=== PATIENT | female | born 1960 | race Caucasian/White ===

== ENCOUNTER 2018-09-22 22:42 | Emergency (ER) | payer OTHER, SELFPAY ==
[2018-09-22 22:45] VITALS: BP 134/86; PULSE 102; RESP 17; TEMP 36.8; O2SAT 100; BMI 38.0
--- NOTE | 2018-09-22 23:14 | ED.HA ---
HPI - Headache General Chief Complaint: Headache Stated Complaint: throbbing headache since the 4th Time Seen by Provider: 09/22/18 23:01 Source: patient Mode of arrival: ambulatory Limitations: no limitations History of Present Illness HPI Narrative: 58-year-old female here for evaluation of a bilateral frontal headache. Patient states that has been going on for the past 3 days. She has been alternating Tylenol and Motrin. States she has not had a headache like this in the past. It was a gradual onset. No fevers. Does have some occasional neck pain. She states the headache is causing her right hip to hurt. Given to the emergency department for evaluation Related Data Allergies Allergy/AdvReac Type Severity Reaction Status Date / Time No Known Drug Allergies Allergy Verified 09/22/18 23:29 Review of Systems Constitutional Denies fever(s), Reports headache(s) and Denies weakness Eyes Denies blurry vision, Denies change in vision and Denies loss of vision ENT Ears, Nose, Mouth, and Throat: Denies vertigo, Denies dizziness, Reports headache(s) and Denies disequilibrium Cardiovascular Denies chest pain and Denies dyspnea Respiratory Denies dyspnea Gastrointestinal Gastrointestinal: Denies abdominal pain, Denies nausea and Denies vomiting Musculoskeletal Denies abnormal gait and Reports arthralgias (Right hip pain) Integumentary/Breasts Denies new lesions and Denies rash Neurologic Denies abnormal gait, Denies behavioral changes, Denies confusion, Denies vertigo, Denies dizziness, Reports headache(s), Denies focal weakness, Denies loss of vision, Denies memory loss, Denies disequilibrium and Denies weakness Psychiatric Denies behavioral changes, Denies confusion and Denies memory loss [facility] Medical History Patient denies medical problems (Acute) Social History Smoking Status: Never smoker Social History Smoking Status: Never smoker Exam Initial Vital Signs Initial Vital Signs: Vital Signs Temperature 98.2 F 09/22/18 22:45 Pulse Rate 102 H 09/22/18 22:45 Respiratory Rate 17 09/22/18 22:45 Blood Pressure 134/86 09/22/18 22:45 Pulse Oximetry 100 09/22/18 22:45 Const General: cooperative, well developed, well groomed and No acute distress Orientation: alert, awake and oriented x3 HENMT Head: normal to inspection and normocephalic Ears: hearing grossly normal bilaterally Nose: external nose normal Eyes Pupils: PERRL EOM: EOM intact bilaterally Resp Effort & Inspection: normal respiratory effort Auscultation: clear to auscultation bilaterally Cardio Rate: regular rate Rhythm: regular rhythm Skin Lesions: no lesions Rashes: no rashes Neuro General: alert, awake and oriented x3 Cranial Nerves: CN's II-XI intact bilaterally Cognition: normal cognition Speech: speech normal Gait: normal gait Motor: muscle tone normal throughout Sensory Exam: no sensory deficits noted Extrem General: normal to inspection and capillary refill normal Psych Appearance: grossly normal and well kempt Course Orders Ordered: Discontinued Medications Diphenhydramine HCl (Benadryl) 25 mg IV NOW ONE Stop: 09/22/18 23:15 Last Admin: 09/22/18 23:30 Dose: 25 mg Sodium Chloride (Normal Saline 0.9%) 1,000 mls @ 1,000 mls/hr IV BOLUS ONE Stop: 09/23/18 00:13 Last Infusion: 09/23/18 00:44 Dose: 0 mls/hr Admin: 09/22/18 23:29 Dose: 1,000 mls/hr Ketorolac Tromethamine (Toradol) 30 mg IV NOW ONE Stop: 09/22/18 23:15 Last Admin: 09/22/18 23:30 Dose: 30 mg Metoclopramide HCl (Reglan) 10 mg IV NOW ONE Stop: 09/22/18 23:15 Last Admin: 09/22/18 23:30 Dose: 10 mg Vital Signs - 8 hr 09/22/18 22:45 09/23/18 00:54 Temperature 98.2 F 98.1 F Pulse Rate 102 H 70 Respiratory Rate 17 16 Blood Pressure 134/86 106/50 L Pulse Oximetry 100 98 MDM - Headache MDM Narrative Medical decision making narrative: Patient reports complete resolution of her symptoms after medications in the emergency department. I do suspect that her headache is a tension headache caused by her neck pain. She is afebrile. Low suspicion for meningitis. Symptoms were gradual onset. No fevers. Low suspicion for ICH. Hold on any radiologic studies for now. Patient was given return precautions and follow-up instructions. She was told to contact her primary doctor for follow-up. She expressed understanding and agreement with plan. Discharge Plan Departure Patient Disposition: Home Clinical Impression: Headache Qualifiers: Headache type: unspecified Headache chronicity pattern: unspecified pattern Intractability: not intractable Qualified Code(s): R51 - Headache Discharge Date/Time: 09/23/18 00:53 Interventions: ED Discharge Assessment Last Done: 09/23/18 00:54 Instructions: DI for Headache Activity Restrictions/Additional Instructions: Contact your primary care provider for a follow-up. Return to the emergency department for any new or worsening symptoms. Continue all of your medications as directed.
[2018-09-22] MEDS: SODIUM CHLORIDE 0.9% 1,000 ML 1000 ML IV (23:29)
[2018-09-22] MEDS: diphenhydrAMINE 50 MG/ML VIAL 25 MG IV (23:30)
[2018-09-22] MEDS: METOCLOPRAMIDE 10 MG/2 ML INJ IV (23:30)
[2018-09-22] MEDS: KETOROLAC 60 MG/2 ML VIAL 30 MG IV (23:30)
[2018-09-23 00:54] VITALS: BP 106/50; PULSE 70; RESP 16; TEMP 36.7; O2SAT 98
== END 2018-09-23 00:53 | disposition home or self-care (01) ==
PROVIDERS: Emergency Provider Emergency Medicine
DX: R51 Headache (principal)
CPT/HCPCS: 36591; 96361; 96374; 96375; 99283; 99284; J1200; J1885; J2765

== ENCOUNTER 2019-05-04 14:47 | Emergency (ER) | payer OTHER, SELFPAY ==
[2019-05-04 14:55] VITALS: BP 135/68; PULSE 98; RESP 14; TEMP 36.7; O2SAT 98; BMI 37.0
--- NOTE | 2019-05-04 14:56 | DI.RAD.S_ITS ---
PROCEDURE: XR FINGER LT MIN 2V INDICATIONS: Cat scratch or bite, red swollen TECHNIQUE: AP hand, 2 views of the 3 finger(s) acquired. COMPARISON: None. FINDINGS: Bones: No fractures or dislocations. No suspicious bony lesions. Soft tissues: No suspicious soft tissue calcifications. IMPRESSION: No fracture. No osseous lesion. If symptoms and/or clinical suspicion for pathology persists, further assessment with repeat radiographs (7-10 days) or advanced imaging (e.g. CT, MRI or bone scan) may be helpful. Dictated by: Alix Castañeda MD, PhD on 05/04/2019 at 15:41 Approved by: Alix Castañeda MD, PhD on 05/04/2019 at 15:42
--- NOTE | 2019-05-04 18:19 | ED.WOUNDLAC ---
HPI - Wound/Laceration <KIT FarleyP - Last Filed: 05/04/19 22:33> General Chief Complaint: Wound/Laceration Stated Complaint: Patient states left middle finger infection Time Seen by Provider: 05/04/19 18:02 Source: patient Mode of arrival: Ambulatory Limitations: no limitations History of Present Illness HPI narrative: This is a 58-year-old female, nonsmoker, who presents to ED with left 3rd distal finger infection. Patient reports she got attacked by her own old cat on at a [employer] office either by her back claws or tooth when she was holding her cat on her lap and reached out for her purse. Patient self treated with soaking in a peroxide and alcohol daily with antibiotic triple ointment but her affected finger has been getting worse with pain, swelling, redness, warmth on affected finger and mild chills since yesterday. Patient right dominant hand. Unsure of last tetanus immunization. Patient reports mild to moderate throbbing constant pain with mildly decreased sensation on affected finger. Patient has history of diabetes, hypertension, hypothyroidism. Related Data Previous Rx's Medication Instructions Recorded amoxicillin-pot clavulanate 1 tab PO BID 7 Days #14 tab 05/04/19 [Augmentin] Allergies Allergy/AdvReac Type Severity Reaction Status Date / Time No Known Drug Allergies Allergy Verified 09/22/18 23:29 Review of Systems <KIT FarleyP - Last Filed: 05/04/19 22:33> Review of Systems Narrative: General: Denies fever, (+) chills, fatigue, malaise, sweats. HEENT: Denies sinus pain, ear pain, sore throat, difficulty swallowing, dizziness. Respiratory: Denies dyspnea, cough, wheezing, hemoptysis, sputum. Cardiovascular: Denies chest pain, palpitations, orthopnea, edema. Gastrointestinal: Denies nausea, vomiting, abdominal pain, diarrhea, constipation, melena. : Denies dysuria, frequency, incontinence, hematuria, urinary retention. Musculoskeletal: See HPI Skin: See HPI Neurologic: Denies weakness, headache, numbness, change in speech, confusion, seizures, incoordination. Psychiatric: No concerning psychosocial issues. 12-point review of systems is negative except for those stated above. Patient History <DAVID Farley - Last Filed: 05/04/19 22:33> Social History Smoking Status: Never smoker Smoking Status: Never smoker alcohol intake frequency: other Substance Use Type: does not use Exam <Guilherme UrbinaDAVID - Last Filed: 05/04/19 22:33> Narrative Exam Narrative: General appearance: well developed, well nourished, in no acute distress. Head: normocephalic, atraumatic, no scalp lesions, non-tender. ENT: Hearing grossly intact. Nose without bleeding, purulent discharge or deviation. Mucous membrane moist, no mucosal lesion. Throat without erythema, tonsillar hypertrophy or exudate. Uvula in midline, airway patent. Neck/Thyroid: neck supple, full range of motion, no visible masses or meningeal signs. No JVD, non-tender without lymphadenopathy. Skin: Mild swelling, erythema to 3rd left distal finger. Warm to palpate on 3rd finger and the rest of the hand. No suspicious rashes, lesions over other visible areas. Heart: no clubbing, no cyanosis, no edema. Lungs: Breathing even and unlabored. No stridor. No accessory muscles used. Able to speak in full sentences. Chest: normal shape and expansion. Abdomen: non-obese, non-distended. Neurologic: alert and oriented. Cognitive exam, [employer] and PNS grossly intact on informal exam. Psych: good eye contact, normal affect. Initial Vital Signs Initial Vital Signs: Vital Signs Temperature 98.1 F 05/04/19 14:55 Pulse Rate 98 H 05/04/19 14:55 Respiratory Rate 14 05/04/19 14:55 Blood Pressure 135/68 05/04/19 14:55 Pulse Oximetry 98 05/04/19 14:55 Extrem Left upper extremity: hand Details: abnormal to inspection, normal capillary refill, neuromotor exam normal Details: wrist extension normal, thumb opposition normal and thumb IP flexion normal, neurosensory exam normal, tenderness Location: of the 3rd digit Location: at the distal phalanx, vascular exam Details: radial pulse present, normal ROM of fingers, warmth Location: of the 3rd digit Location: at the distal phalanx, swelling Location: of the 3rd digit Location: at the distal phalanx and other (lesion near medial aspect nail) <Dmitry Park DO - Last Filed: 05/05/19 05:37> Initial Vital Signs Initial Vital Signs: Vital Signs Temperature 98.1 F 05/04/19 14:55 Pulse Rate 98 H 05/04/19 14:55 Respiratory Rate 14 05/04/19 14:55 Blood Pressure 135/68 05/04/19 14:55 Pulse Oximetry 98 05/04/19 14:55 Scores <[facility] Wayne[facility]rickKIT penaP - Last Filed: 05/04/19 22:33> GCS [place] coma scale eye opening: Spontaneous [place] coma scale verbal response: Orientated [place] coma scale motor response: Obey commands [place] coma scale total score: 15 Course <[facility] WayneKIT HackettP - Last Filed: 05/04/19 22:33> Orders Ordered: Discontinued Medications Amoxicillin/Clavulanate Potassium (Augmentin 875-125 Mg) 1 tab PO NOW ONE Stop: 05/04/19 18:22 Last Admin: 05/04/19 18:46 Dose: 1 tab Documented by: SCANAPO Diphtheria/Tetanus/Acell Pertussis (Adacel) 0.5 ml IM .ONCE ONE Stop: 05/04/19 18:22 Last Admin: 05/04/19 18:46 Dose: 0.5 ml Documented by: SCANAPO Vital Signs Vital signs: Vital Signs - 8 hr 05/04/19 14:55 05/04/19 18:44 Temperature 98.1 F Pulse Rate 98 H 85 Respiratory Rate 14 20 Blood Pressure 135/68 Blood Pressure [Left Arm] 137/65 Pulse Oximetry 98 98 <Dmitry Park DO - Last Filed: 05/05/19 05:37> Orders Ordered: Discontinued Medications Amoxicillin/Clavulanate Potassium (Augmentin 875-125 Mg) 1 tab PO NOW ONE Stop: 05/04/19 18:22 Last Admin: 05/04/19 18:46 Dose: 1 tab Documented by: SCANAPO Diphtheria/Tetanus/Acell Pertussis (Adacel) 0.5 ml IM .ONCE ONE Stop: 05/04/19 18:22 Last Admin: 05/04/19 18:46 Dose: 0.5 ml Documented by: SCANAPO Vital Signs Vital signs: Vital Signs - 8 hr 05/04/19 14:55 05/04/19 18:44 Temperature 98.1 F Pulse Rate 98 H 85 Respiratory Rate 14 20 Blood Pressure 135/68 Blood Pressure [Left Arm] 137/65 Pulse Oximetry 98 98 MDM - Wound/Laceration <DAVID Farley - Last Filed: 05/04/19 22:33> Differential Diagnosis Differential diagnosis: Likely other (Animal bite) Medical Records Attestation: I reviewed the patient's medical records. Imaging Data XR-Finger LT: Radiologist's Impression: [address] [address] XRay Report Signed Patient: Diane Obregon [facility]#: [id number] : 1Acct:[id number] Age/Sex: 58 / FDate of Service: 05/04/19 Loc: ED Accession Number: [id number] Procedure: XR finger LT min 2V Ordering Provider: Aldo Hinkle MD PROCEDURE: XR FINGER LT MIN 2V INDICATIONS: Cat scratch or bite, red swollen TECHNIQUE: AP hand, 2 views of the 3 finger(s) acquired. COMPARISON: None. FINDINGS: Bones: No fractures or dislocations. No suspicious bony lesions. Soft tissues: No suspicious soft tissue calcifications. IMPRESSION: No fracture. No osseous lesion. If symptoms and/or clinical suspicion for pathology persists, further assessment with repeat radiographs (7-10 days) or advanced imaging (e.g. CT, MRI or bone scan) may be helpful. Dictated by: Alix Castañeda MD, PhD on 05/04/2019 at 15:41 Approved by: Alix Castañeda MD, PhD on 05/04/2019 at 15:42 [facility] Narrative Medical decision making narrative: Physical exam is consistent with cellulitis on left 3rd distal phalange by either cat bite or scratch. Patient has history of diabetes and patient will be covered with Augmentin b.i.d. dose for 7 days. Tdap has been updated today. Patient advised to take [id number] Tylenol and or Motrin as needed for discomfort and fever. Return precautions were discussed with the patient and advised to re-evaluated her affected finger in 2-3 days. Patient verbalized understanding and in agreement with the treatment plan. Discharge Plan Departure Patient Disposition: Home Clinical Impression: Open wound of finger of left hand due to animal bite, Cellulitis of left middle finger Discharge Date/Time: 05/04/19 18:58 Instructions: DI for Cellulitis -- Adult, DI for Animal Bites Activity Restrictions/Additional Instructions: You have been diagnosed with [cellulitis on left 3rd distal finger from animal bite/ scratch. Tetanus immunization has been updated today.]. What to do: *Take your medications as directed. You were medicated with Augmentin 1st dose while in ED and will be discharged to home with remaining dose of 7 day course. This medication has been transmitted to [facility], [place], operated by [facility]. You can take [id number] Tylenol and or Motrin as needed for discomfort or fever. You can continue to do wound care with antibiotic ointment. *Follow up with your primary care provider in 2-3 days, call for an appointment for wound recheck. Let them know you were seen in the ED and that we asked you to be seen in follow up. *Return to ED if you have any new, worsening, or concerning symptoms, such as [high fever, worsening pain, increasing redness/swelling/warmth after starting antibiotic medications for a couple of doses, chest pain, breathing difficulty, unable to tolerate fluids or any acute concerns]. Prescriptions: New amoxicillin-pot clavulanate [Augmentin] 875-125 mg tablet 1 tab PO BID 7 Days Qty: 14 RF: 0 Referrals: [facility], [place] [Outside]
[2019-05-04 18:44] VITALS: BP 137/65; PULSE 85; RESP 20; O2SAT 98
[2019-05-04] MEDS: TET,DIPH,PERTUSS(ACELL),VAC/PF 0.5 ML SYRINGE IM (18:46)
[2019-05-04] MEDS: AMOXICILLIN/CLAV 875/125 MG 1 TAB PO (18:46)
--- NOTE | 2019-05-04 18:57 | PC.NURSE ---
patient was scratched by cat.
== END 2019-05-04 18:58 | disposition home or self-care (01) ==
PROVIDERS: Emergency Provider Nurse Practitioner Family
DX: L03.012 Cellulitis of left finger (principal); S61.259A Open bite of unspecified finger without damage to nail, initial encounter; W55.01XA Bitten by cat, initial encounter; Z23 Encounter for immunization
CPT/HCPCS: 73140; 90471; 99283; 90715

== ENCOUNTER 2020-05-21 09:00 | Outpatient (RCR) | payer OTHER, SELFPAY ==
--- NOTE | 2019-12-23 15:32 | PT.OIE ---
Current Diagnoses Pain in left shoulder (12/23/19) Past Medical History (Last Updated 12/27/19 @ 15:32 by Liza Rodriguez, PT) Diabetes mellitus (Acute) Hypertension (Acute) Hypothyroid (Acute) Patient denies medical problems (Acute) Past Surgical History (Last Updated 12/27/19 @ 15:31 by Liza Rodriguez, PT) S/P rotator cuff repair (Acute) Visit Care Team Role Provider Type Jean Marie Jaimes DO Referring Provider Non-Staff Specialty: [facility] Address: [address] [place] [address], [id number] Email: Attending Provider Specialty: Address: Phone: Fax: Email: Physical Therapy Initial Evaluation PT-OP-A Visit Information Start: 12/23/19 07:56 Freq: Status: Active Protocol: Document 12/23/19 08:15 AMB (Rec: 12/25/19 07:51 AMB [email or web address]) Out-Patient Physical Therapy Visit Information Visit Information Visit Type Initial Evaluation Visit Start Time 08:15 Visit Stop Time 09:00 Total Visit Minutes 45 Visit Number 1 PT-OP-B Current Condition Start: 12/23/19 07:56 Freq: Status: Active Protocol: Document 12/23/19 08:12 AMB (Rec: 12/23/19 08:21 AMB [id number]) Current Condition History of Current Condition Onset Date 4 months ago Current Complaints L shoulder pain History of Current Condition Diane reports insidious onset shoulder pain, unable to lift L arm behind back or above shoulder. Difficulty and pain sleeping. History of R shoulder rotator cuff surgery around 2010. 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 Prior Functional Status Baseline Function- ADL's Independent Baseline Function- Mobility Independent Current Functional Impairments (Reported) Functional Limitations- ADL's Using the arm to carry, reach behind back, lift Personal Factors Other Personal Factors That May Effect DM II, hypothyroid, previous R Therapy/Recovery rotator cuff surgery x2 PT-OP-C Subjective Start: 12/23/19 07:56 Freq: Status: Active Protocol: Document 12/23/19 08:15 AMB (Rec: 12/25/19 07:51 AMB [email or web address]) Patient Questionnaires Quick Dash- Upper Extremity Quick Dash UE Score 55 Quick Dash UE Impairment 40 to 59% Impaired (Score 40- 59) OP-PT Pain Assessment Location Left Shoulder Intensity 9 Scale Used Numeric (0 - 10) PT-OP-K Range of Motion Start: 12/23/19 07:56 Freq: Status: Active Protocol: Document 12/23/19 08:15 AMB (Rec: 12/23/19 08:29 AMB [id number]) Shoulder Goniometric Range of Motion Shoulder Right Active Testing Position Sitting Flexion 165 Abduction 170 External Rotation at 0 degrees Abduction 50 Internal Rotation Behind Back (text) T6 Left Active Testing Position Standing Flexion 100 Extension 52 Abduction 80 External Rotation at 0 degrees Abduction 28 Internal Rotation Behind Back (text) buttocks PT-OP-L Special Tests Start: 12/23/19 07:56 Freq: Status: Active Protocol: Document 12/23/19 08:15 AMB (Rec: 12/25/19 08:14 AMB [email or web address]) Special Tests Shoulder Special Tests Empty Can Test Results - Lift-Off Rotator Cuff Test Results + PT-OP-M Strength Start: 12/23/19 07:56 Freq: Status: Active Protocol: Document 12/23/19 08:15 AMB (Rec: 12/25/19 08:14 AMB [email or web address]) Shoulder Strength Shoulder Manual Muscle Testing Right Flexion 4 Good Extension 4+ Good+ Abduction (C5) 4 Good External Rotation 4 Good Internal Rotation 4+ Good+ Left Flexion 3+ Fair+ Extension 4 Good Abduction (C5) 3- Fair- External Rotation 4- Good- Internal Rotation 4- Good- PT-OP-Q Treatments Start: 12/23/19 07:56 Freq: Status: Active Protocol: Document 12/23/19 08:15 AMB (Rec: 12/25/19 07:51 AMB [email or web address]) Therapeutic Exercises Sitting Exercises 1 Sitting Exercise Name upper trap stretch Reps/Minutes 30x2 Standing Exercises 2 Standing Exercise Name t band rows Equipment Used #2 t band Reps/Minutes 2x12 1 Standing Exercise Name isometrics Side left Reps/Minutes 5x5 Comments abduction Manual Therapy Treatment Taping 1 Body Location L shoulder Type of Tape Kinesio Tape Comments Y around GH joint, I for scap retract PT-OP-T Assessment and Plan Start: 12/23/19 07:56 Freq: Status: Active Protocol: Document 12/23/19 08:15 AMB (Rec: 12/25/19 15:57 [email or web address]) Physical Therapy Assessment Rehab Potential Rehabilitation Potential Good Evaluation Complexity Number of Personal Factors/Comorbidities 1-2 Number of Body Systems Impaired 4 or More Clinical Presentation at Evaluation Evolving Impairments Impairments Functional Activities,Pain,ROM ,Strength Goals Three Impairment Pain Short Term Goal (STG) Diane will perform upper body dressing with shoulder pain of 5/10 or less. 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 LTG Duration 8 weeks Two Impairment Strength Short Term Goal (STG) Diane will improve her shoulder abduction strength to 4/5 or better. STG Duration 4 weeks Alf Goal (LTG) Diane will improve her shoulder strength so that she can lift a plate to an upper cabinet without shoulder compensations. LTG Duration 8 weeks One Impairment ROM Short Term Goal (STG) Diane will improve her shoulder AROM flexion to 140 degrees. STG Duration 4 weeks Senior Mechanical Engineer Goal (LTG) Diane will improve her shoulder AROM internal rotation so that she can clasp her bra behind her back. LTG Duration 8 weeks Assessment Summary Assessment Diane attends physical therapy with insidious onset shoulder pain that is limiting her with many of her activities of daily living. She is concerned because she had rotator cuff surgery in the past. It is difficult for her to rest her shoulder secondary to watching young children. She will benefit from physical therapy to strengthen around the scapula and rotator cuff so that she can sleep and perform her daily activities with less pain. Physical Therapy Plan Frequency and Duration Frequency of Treatment 2x/Week Duration of Treatment 8 weeks Plan of Care Start Date 12/23/19 Plan of Care End Date 02/17/20 Therapeutic Interventions Therapeutic Interventions Home Exercise Program,Joint Mobilizations,Manual Therapy, Neuromuscular Re-education, Self-Care/Home Management, Therapeutic Activities, Therapeutic Exercises Modalities Cold Pack/Ice Massage,Electric Stimulation,Hot Packs, Ultrasound Next Visit Focus/Plan Next Note Type Treatment Note Next Visit Plan Progress HEP with rotator cuff and scapular strengthening, address body mechanics/posture
--- NOTE | 2019-12-23 15:33 | PT.OPPOC ---
Physical, Occupational & Speech Therapy At [facility] Current Diagnoses Pain in left shoulder (12/23/19) Visit Care Team Role Provider Type Jean Marie Jaimes DO Referring Provider Non-Staff Specialty: Family Practice Address: [address] [place] [address], [id number] Email: Attending Provider Specialty: Address: Phone: Fax: Email: Plan Of Care PT-OP-T Assessment and Plan Start: 12/23/19 07:56 Freq: Status: Active Protocol: Document 12/23/19 08:15 AMB (Rec: 12/25/19 15:57 AMB [email or web address]) Physical Therapy Assessment Rehab Potential Rehabilitation Potential Good Evaluation Complexity Number of Personal Factors/Comorbidities 1-2 Number of Body Systems Impaired 4 or More Clinical Presentation at Evaluation Evolving Impairments Impairments Functional Activities,Pain,ROM ,Strength Goals Three Impairment Pain Short Term Goal (STG) Diane will perform upper body dressing with shoulder pain of 5/10 or less. 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 LTG Duration 8 weeks Two Impairment Strength Short Term Goal (STG) Diane will improve her shoulder abduction strength to 4/5 or better. STG Duration 4 weeks Care Partner Goal (LTG) Diane will improve her shoulder strength so that she can lift a plate to an upper cabinet without shoulder compensations. LTG Duration 8 weeks One Impairment ROM Short Term Goal (STG) Diane will improve her shoulder AROM flexion to 140 degrees. STG Duration 4 weeks Senior Care Goal (LTG) Diane will improve her shoulder AROM internal rotation so that she can clasp her bra behind her back. LTG Duration 8 weeks Assessment Summary Assessment Diane attends physical therapy with insidious onset shoulder pain that is limiting her with many of her activities of daily living. She is concerned because she had rotator cuff surgery in the past. It is difficult for her to rest her shoulder secondary to watching young children. She will benefit from physical therapy to strengthen around the scapula and rotator cuff so that she can sleep and perform her daily activities with less pain. Physical Therapy Plan Frequency and Duration Frequency of Treatment 2x/Week Duration of Treatment 8 weeks Plan of Care Start Date 12/23/19 Plan of Care End Date 02/17/20 Therapeutic Interventions Therapeutic Interventions Home Exercise Program,Joint Mobilizations,Manual Therapy, Neuromuscular Re-education, Self-Care/Home Management, Therapeutic Activities, Therapeutic Exercises Modalities Cold Pack/Ice Massage,Electric Stimulation,Hot Packs, Ultrasound Next Visit Focus/Plan Next Note Type Treatment Note Next Visit Plan Progress HEP with rotator cuff and scapular strengthening, address body mechanics/posture Plan of Care Dates Plan of Care Start Date 12/23/19 Plan of Care End Date 02/17/20 Electronically Signed by: Liza Rodriguez, PT 12/27/19 [id number] Please Sign and Return: I have reviewed this Plan of Care and certify that the skilled therapy services above are required to meet the patient?s needs. Physician Signature Date Printed Name and Credentials Clinical Instructor Signature Printed Name and Credentials
--- NOTE | 2019-12-30 08:55 | PT.OTN ---
Current Diagnoses Pain in left shoulder (12/30/19) Physical Therapy Treatment Note PT-OP-A Visit Information Start: 12/23/19 07:56 Freq: Status: Active Protocol: Document 12/30/19 08:15 AMB (Rec: 12/30/19 08:52 AMB [id number]) Out-Patient Physical Therapy Visit Information Visit Information Visit Type Treatment Note Visit Start Time 08:15 Visit Stop Time 09:00 Total Visit Minutes 45 Visit Number 2 PT-OP-B Current Condition Start: 12/23/19 07:56 Freq: Status: Active Protocol: Document 12/23/19 08:12 AMB (Rec: 12/23/19 08:21 AMB [id number]) Current Condition History of Current Condition Onset Date 4 months ago Current Complaints L shoulder pain History of Current Condition Diane reports insidious onset shoulder pain, unable to lift L arm behind back or above shoulder. Difficulty and pain sleeping. History of R shoulder rotator cuff surgery around 2010. 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 Prior Functional Status Baseline Function- ADL's Independent Baseline Function- Mobility Independent Current Functional Impairments (Reported) Functional Limitations- ADL's Using the arm to carry, reach behind back, lift Personal Factors Other Personal Factors That May Effect DM II, hypothyroid, previous R Therapy/Recovery rotator cuff surgery x2 PT-OP-C Subjective Start: 12/23/19 07:56 Freq: Status: Active Protocol: Document 12/30/19 08:15 AMB (Rec: 12/30/19 08:52 AMB [id number]) OP-PT Subjective Patient Comments Patient Comments Pt states yesterday was quite painful. Taping did help but tape came off on Sunday after appointment. Hoping to tape more anteriorly as that has been quite painful. PT-OP-K Range of Motion Start: 12/23/19 07:56 Freq: Status: Active Protocol: Document 12/23/19 08:15 AMB (Rec: 12/23/19 08:29 AMB [id number]) Shoulder Goniometric Range of Motion Shoulder Right Active Testing Position Sitting Flexion 165 Abduction 170 External Rotation at 0 degrees Abduction 50 Internal Rotation Behind Back (text) T6 Left Active Testing Position Standing Flexion 100 Extension 52 Abduction 80 External Rotation at 0 degrees Abduction 28 Internal Rotation Behind Back (text) buttocks PT-OP-L Special Tests Start: 12/23/19 07:56 Freq: Status: Active Protocol: Document 12/23/19 08:15 AMB (Rec: 12/25/19 08:14 AMB [email or web address]) Special Tests Shoulder Special Tests Empty Can Test Results - Lift-Off Rotator Cuff Test Results + PT-OP-M Strength Start: 12/23/19 07:56 Freq: Status: Active Protocol: Document 12/23/19 08:15 AMB (Rec: 12/25/19 08:14 AMB [email or web address]) Shoulder Strength Shoulder Manual Muscle Testing Right Flexion 4 Good Extension 4+ Good+ Abduction (C5) 4 Good External Rotation 4 Good Internal Rotation 4+ Good+ Left Flexion 3+ Fair+ Extension 4 Good Abduction (C5) 3- Fair- External Rotation 4- Good- Internal Rotation 4- Good- PT-OP-Q Treatments Start: 12/23/19 07:56 Freq: Status: Active Protocol: Document 12/30/19 08:15 AMB (Rec: 12/30/19 08:52 AMB [id number]) Therapeutic Exercises Sitting Exercises 2 Sitting Exercise Name velia- flexion, scaption Reps/Minutes 5 min 1 Sitting Exercise Name upper trap stretch Reps/Minutes 30x2 Standing Exercises 2 Standing Exercise Name t band rows Equipment Used #2 t band Reps/Minutes 2x12 1 Standing Exercise Name isometrics Side left Reps/Minutes 5x5 Comments abduction, flex, ext, IR Manual Therapy Treatment Soft Tissue Mobilization 1 Body Location L shoulder Comments subscap, infraspinatus, anterior deltoid, PROM all planes Taping 1 Body Location L shoulder Type of Tape Kinesio Tape Comments Y around GH joint, I for scap retract PT-OP-T Assessment and Plan Start: 12/23/19 07:56 Freq: Status: Active Protocol: Document 12/30/19 08:15 AMB (Rec: 12/30/19 08:52 AMB [id number]) Physical Therapy Assessment Assessment Summary Assessment Diane has pain throughout the shoulder complex, with most pain with isometrics with abduction, no pain with flexion or internal rotation. Physical Therapy Plan Next Visit Focus/Plan Next Note Type Treatment Note Next Visit Plan Progress HEP with rotator cuff and scapular strengthening, address body mechanics/posture
--- NOTE | 2020-01-06 10:17 | PT.OTN ---
Current Diagnoses Pain in left shoulder (01/06/20) Physical Therapy Treatment Note PT-OP-A Visit Information Start: 12/23/19 07:56 Freq: Status: Active Protocol: Document 01/06/20 09:00 AMB (Rec: 01/06/20 09:46 AMB [id number]) Out-Patient Physical Therapy Visit Information Visit Information Visit Type Treatment Note Visit Start Time 09:00 Visit Stop Time 09:45 Total Visit Minutes 45 Visit Number 3 PT-OP-B Current Condition Start: 12/23/19 07:56 Freq: Status: Active Protocol: Document 12/23/19 08:12 AMB (Rec: 12/23/19 08:21 AMB [id number]) Current Condition History of Current Condition Onset Date 4 months ago Current Complaints L shoulder pain History of Current Condition Diane reports insidious onset shoulder pain, unable to lift L arm behind back or above shoulder. Difficulty and pain sleeping. History of R shoulder rotator cuff surgery around 2010. 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 Prior Functional Status Baseline Function- ADL's Independent Baseline Function- Mobility Independent Current Functional Impairments (Reported) Functional Limitations- ADL's Using the arm to carry, reach behind back, lift Personal Factors Other Personal Factors That May Effect DM II, hypothyroid, previous R Therapy/Recovery rotator cuff surgery x2 PT-OP-C Subjective Start: 12/23/19 07:56 Freq: Status: Active Protocol: Document 01/06/20 09:00 AMB (Rec: 01/06/20 09:46 AMB [id number]) OP-PT Subjective Patient Comments Patient Comments Pt states sleeping is painful, rolling over is painful getting the arm to come along. PT-OP-K Range of Motion Start: 12/23/19 07:56 Freq: Status: Active Protocol: Document 12/23/19 08:15 AMB (Rec: 12/23/19 08:29 AMB [id number]) Shoulder Goniometric Range of Motion Shoulder Right Active Testing Position Sitting Flexion 165 Abduction 170 External Rotation at 0 degrees Abduction 50 Internal Rotation Behind Back (text) T6 Left Active Testing Position Standing Flexion 100 Extension 52 Abduction 80 External Rotation at 0 degrees Abduction 28 Internal Rotation Behind Back (text) buttocks PT-OP-L Special Tests Start: 12/23/19 07:56 Freq: Status: Active Protocol: Document 12/23/19 08:15 AMB (Rec: 12/25/19 08:14 AMB [email or web address]) Special Tests Shoulder Special Tests Empty Can Test Results - Lift-Off Rotator Cuff Test Results + PT-OP-M Strength Start: 12/23/19 07:56 Freq: Status: Active Protocol: Document 12/23/19 08:15 AMB (Rec: 12/25/19 08:14 AMB [email or web address]) Shoulder Strength Shoulder Manual Muscle Testing Right Flexion 4 Good Extension 4+ Good+ Abduction (C5) 4 Good External Rotation 4 Good Internal Rotation 4+ Good+ Left Flexion 3+ Fair+ Extension 4 Good Abduction (C5) 3- Fair- External Rotation 4- Good- Internal Rotation 4- Good- PT-OP-Q Treatments Start: 12/23/19 07:56 Freq: Status: Active Protocol: Document 01/06/20 09:00 AMB (Rec: 01/06/20 09:46 AMB [id number]) Therapeutic Exercises Supine Exercises 2 Supine Exercise Name alternating isometrics Comments 90 degrees all planes 1 Supine Exercise Name horizontal adduction Resistance AROM Reps/Minutes 10 Sitting Exercises 2 Sitting Exercise Name velia- flexion, scaption Reps/Minutes 5 min Standing Exercises 2 Standing Exercise Name t band rows Equipment Used #2 t band Reps/Minutes 2x12 1 Standing Exercise Name isometrics Side left Reps/Minutes 5x5 Comments abduction, flex, ext, IR Manual Therapy Treatment Soft Tissue Mobilization 1 Body Location L shoulder Comments subscap, infraspinatus, anterior deltoid, PROM all planes Joint Mobilizations 1 Joint GH Direction AP Grade II Body Position Supine Taping 1 Body Location L shoulder Type of Tape Kinesio Tape Comments Y around GH joint, I for scap retract PT-OP-T Assessment and Plan Start: 12/23/19 07:56 Freq: Status: Active Protocol: Document 01/06/20 09:00 AMB (Rec: 01/06/20 09:46 AMB [id number]) Physical Therapy Assessment Assessment Summary Assessment Diane is continuing to have pain with internal rotation and abduction. Stretches are helping her but she is still wondering how this happened Continued to educate on the nature of insidious onset shoulder pain. Physical Therapy Plan Next Visit Focus/Plan Next Note Type Treatment Note Next Visit Plan Progress HEP with rotator cuff and scapular strengthening, address body mechanics/posture
--- NOTE | 2020-01-13 09:58 | PT.OTN ---
Current Diagnoses Pain in left shoulder (01/13/20) Physical Therapy Treatment Note PT-OP-A Visit Information Start: 12/23/19 07:56 Freq: Status: Active Protocol: Document 01/13/20 09:00 AMB (Rec: 01/13/20 09:29 AMB [id number]) Out-Patient Physical Therapy Visit Information Visit Information Visit Type Treatment Note Visit Start Time 09:00 Visit Stop Time 09:45 Total Visit Minutes 45 Visit Number 4 PT-OP-B Current Condition Start: 12/23/19 07:56 Freq: Status: Active Protocol: Document 12/23/19 08:12 AMB (Rec: 12/23/19 08:21 AMB [id number]) Current Condition History of Current Condition Onset Date 4 months ago Current Complaints L shoulder pain History of Current Condition Diane reports insidious onset shoulder pain, unable to lift L arm behind back or above shoulder. Difficulty and pain sleeping. History of R shoulder rotator cuff surgery around 2010. 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 Prior Functional Status Baseline Function- ADL's Independent Baseline Function- Mobility Independent Current Functional Impairments (Reported) Functional Limitations- ADL's Using the arm to carry, reach behind back, lift Personal Factors Other Personal Factors That May Effect DM II, hypothyroid, previous R Therapy/Recovery rotator cuff surgery x2 PT-OP-C Subjective Start: 12/23/19 07:56 Freq: Status: Active Protocol: Document 01/13/20 09:00 AMB (Rec: 01/13/20 09:29 AMB [id number]) OP-PT Subjective Patient Comments Patient Comments Isometric internal rotation continues to be mildly painful . Sleeping on it can be painful. Can't reach behind back, but lifting up is getting better. PT-OP-K Range of Motion Start: 12/23/19 07:56 Freq: Status: Active Protocol: Document 12/23/19 08:15 AMB (Rec: 12/23/19 08:29 AMB [id number]) Shoulder Goniometric Range of Motion Shoulder Right Active Testing Position Sitting Flexion 165 Abduction 170 External Rotation at 0 degrees Abduction 50 Internal Rotation Behind Back (text) T6 Left Active Testing Position Standing Flexion 100 Extension 52 Abduction 80 External Rotation at 0 degrees Abduction 28 Internal Rotation Behind Back (text) buttocks PT-OP-L Special Tests Start: 12/23/19 07:56 Freq: Status: Active Protocol: Document 12/23/19 08:15 AMB (Rec: 12/25/19 08:14 AMB [email or web address]) Special Tests Shoulder Special Tests Empty Can Test Results - Lift-Off Rotator Cuff Test Results + PT-OP-M Strength Start: 12/23/19 07:56 Freq: Status: Active Protocol: Document 12/23/19 08:15 AMB (Rec: 12/25/19 08:14 AMB [email or web address]) Shoulder Strength Shoulder Manual Muscle Testing Right Flexion 4 Good Extension 4+ Good+ Abduction (C5) 4 Good External Rotation 4 Good Internal Rotation 4+ Good+ Left Flexion 3+ Fair+ Extension 4 Good Abduction (C5) 3- Fair- External Rotation 4- Good- Internal Rotation 4- Good- PT-OP-Q Treatments Start: 12/23/19 07:56 Freq: Status: Active Protocol: Document 01/13/20 09:00 AMB (Rec: 01/13/20 09:29 AMB [id number]) Therapeutic Exercises Supine Exercises 2 Supine Exercise Name alternating isometrics Comments 90 degrees all planes Sitting Exercises 3 Sitting Exercise Name AROM to 90 degrees flexion and scaption Reps/Minutes 10 2 Sitting Exercise Name velia- flexion, scaption Reps/Minutes 5 min Standing Exercises 3 Standing Exercise Name shoulder extension AAROM with dowel Reps/Minutes 2x10 1 Standing Exercise Name isometrics Side left Reps/Minutes 5x5 Comments abduction, flex, ext, IR Manual Therapy Treatment Soft Tissue Mobilization 1 Body Location L shoulder Comments subscap, infraspinatus, anterior deltoid, PROM all planes Joint Mobilizations 1 Joint GH Direction AP Grade II Body Position Supine Taping 1 Body Location L shoulder Type of Tape Kinesio Tape Comments Y around GH joint, I for scap retract PT-OP-T Assessment and Plan Start: 12/23/19 07:56 Freq: Status: Active Protocol: Document 01/13/20 09:00 AMB (Rec: 01/13/20 09:29 AMB [id number]) Physical Therapy Assessment Assessment Summary Assessment Diane continues to be concerned about her shoulder popping, but overall she is doing better. IR and ER continue to be painful Physical Therapy Plan Next Visit Focus/Plan Next Note Type Treatment Note Next Visit Plan Progress HEP with rotator cuff and scapular strengthening, address body mechanics/posture
--- NOTE | 2020-02-03 14:54 | PT.OTN ---
Current Diagnoses Pain in left shoulder (02/03/20) Physical Therapy Treatment Note PT-OP-A Visit Information Start: 12/23/19 07:56 Freq: Status: Active Protocol: Document 02/03/20 13:30 AMB (Rec: 02/03/20 13:48 AMB [id number]) Out-Patient Physical Therapy Visit Information Visit Information Visit Type Treatment Note Visit Start Time 13:30 Visit Stop Time 14:15 Total Visit Minutes 45 Visit Number 5 PT-OP-B Current Condition Start: 12/23/19 07:56 Freq: Status: Active Protocol: Document 12/23/19 08:12 AMB (Rec: 12/23/19 08:21 AMB [id number]) Current Condition History of Current Condition Onset Date 4 months ago Current Complaints L shoulder pain History of Current Condition Diane reports insidious onset shoulder pain, unable to lift L arm behind back or above shoulder. Difficulty and pain sleeping. History of R shoulder rotator cuff surgery around 2010. 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 Prior Functional Status Baseline Function- ADL's Independent Baseline Function- Mobility Independent Current Functional Impairments (Reported) Functional Limitations- ADL's Using the arm to carry, reach behind back, lift Personal Factors Other Personal Factors That May Effect DM II, hypothyroid, previous R Therapy/Recovery rotator cuff surgery x2 PT-OP-C Subjective Start: 12/23/19 07:56 Freq: Status: Active Protocol: Document 02/03/20 13:30 AMB (Rec: 02/03/20 13:48 AMB [id number]) OP-PT Subjective Patient Comments Patient Comments Pt repors flare up in pain when suddenly reaching for something that was dropping. PT-OP-K Range of Motion Start: 12/23/19 07:56 Freq: Status: Active Protocol: Document 12/23/19 08:15 AMB (Rec: 12/23/19 08:29 AMB [id number]) Shoulder Goniometric Range of Motion Shoulder Right Active Testing Position Sitting Flexion 165 Abduction 170 External Rotation at 0 degrees Abduction 50 Internal Rotation Behind Back (text) T6 Left Active Testing Position Standing Flexion 100 Extension 52 Abduction 80 External Rotation at 0 degrees Abduction 28 Internal Rotation Behind Back (text) buttocks PT-OP-L Special Tests Start: 12/23/19 07:56 Freq: Status: Active Protocol: Document 12/23/19 08:15 AMB (Rec: 12/25/19 08:14 AMB [email or web address]) Special Tests Shoulder Special Tests Empty Can Test Results - Lift-Off Rotator Cuff Test Results + PT-OP-M Strength Start: 12/23/19 07:56 Freq: Status: Active Protocol: Document 12/23/19 08:15 AMB (Rec: 12/25/19 08:14 AMB [email or web address]) Shoulder Strength Shoulder Manual Muscle Testing Right Flexion 4 Good Extension 4+ Good+ Abduction (C5) 4 Good External Rotation 4 Good Internal Rotation 4+ Good+ Left Flexion 3+ Fair+ Extension 4 Good Abduction (C5) 3- Fair- External Rotation 4- Good- Internal Rotation 4- Good- PT-OP-Q Treatments Start: 12/23/19 07:56 Freq: Status: Active Protocol: Document 02/03/20 14:26 AMB (Rec: 02/03/20 14:29 AMB [id number]) Therapeutic Exercises Sitting Exercises 3 Sitting Exercise Name AROM to 90 degrees flexion and scaption Reps/Minutes 10 2 Sitting Exercise Name velia- flexion, scaption Reps/Minutes 5 min Standing Exercises 4 Standing Exercise Name pendulum Comments with 2# weight, needed cues for form 3 Standing Exercise Name shoulder extension AAROM with dowel Reps/Minutes 2x10 Comments dowel, added IR Manual Therapy Treatment Soft Tissue Mobilization 1 Body Location L shoulder Comments subscap, infraspinatus, anterior deltoid, PROM all planes Joint Mobilizations 1 Joint GH Direction AP Grade II Body Position Supine Taping 1 Body Location L shoulder Type of Tape Kinesio Tape Comments Y around GH joint, I for scap retract PT-OP-T Assessment and Plan Start: 12/23/19 07:56 Freq: Status: Active Protocol: Document 02/03/20 13:30 AMB (Rec: 02/03/20 13:48 AMB [id number]) Physical Therapy Assessment Assessment Summary Assessment Diane has reported two instances of electric pain in anterior shoulder different than her pain with moving. Reports she is just sitting when it happens. Could not reproduce pain in clinic. Overall Diane continues to be concerned about why this has happened, continued to explain insidious nature of problem. That her ROM is improving, continue to be mindful to avoid fast movements away from torso. Physical Therapy Plan Next Visit Focus/Plan Next Note Type Treatment Note Next Visit Plan Progress HEP with rotator cuff and scapular strengthening, address body mechanics/posture
--- NOTE | 2020-02-06 14:16 | PT.OTN ---
Current Diagnoses Pain in left shoulder (02/06/20) Physical Therapy Treatment Note PT-OP-A Visit Information Start: 12/23/19 07:56 Freq: Status: Active Protocol: Document 02/06/20 13:30 AMB (Rec: 02/06/20 14:07 AMB [id number]) Out-Patient Physical Therapy Visit Information Visit Information Visit Type Treatment Note Visit Start Time 13:30 Visit Stop Time 14:15 Total Visit Minutes 45 Visit Number 6 PT-OP-B Current Condition Start: 12/23/19 07:56 Freq: Status: Active Protocol: Document 12/23/19 08:12 AMB (Rec: 12/23/19 08:21 AMB [id number]) Current Condition History of Current Condition Onset Date 4 months ago Current Complaints L shoulder pain History of Current Condition Diane reports insidious onset shoulder pain, unable to lift L arm behind back or above shoulder. Difficulty and pain sleeping. History of R shoulder rotator cuff surgery around 2010. 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 Prior Functional Status Baseline Function- ADL's Independent Baseline Function- Mobility Independent Current Functional Impairments (Reported) Functional Limitations- ADL's Using the arm to carry, reach behind back, lift Personal Factors Other Personal Factors That May Effect DM II, hypothyroid, previous R Therapy/Recovery rotator cuff surgery x2 PT-OP-C Subjective Start: 12/23/19 07:56 Freq: Status: Active Protocol: Document 02/06/20 13:30 AMB (Rec: 02/06/20 14:07 AMB [id number]) OP-PT Subjective Patient Comments Patient Comments Pt reports overall feeling moderately better. Feels like flexion is coming along, but abduction and internal rotation are continuing to be an issue. PT-OP-K Range of Motion Start: 12/23/19 07:56 Freq: Status: Active Protocol: Document 12/23/19 08:15 AMB (Rec: 12/23/19 08:29 AMB [id number]) Shoulder Goniometric Range of Motion Shoulder Right Active Testing Position Sitting Flexion 165 Abduction 170 External Rotation at 0 degrees Abduction 50 Internal Rotation Behind Back (text) T6 Left Active Testing Position Standing Flexion 100 Extension 52 Abduction 80 External Rotation at 0 degrees Abduction 28 Internal Rotation Behind Back (text) buttocks PT-OP-L Special Tests Start: 12/23/19 07:56 Freq: Status: Active Protocol: Document 12/23/19 08:15 AMB (Rec: 12/25/19 08:14 AMB [email or web address]) Special Tests Shoulder Special Tests Empty Can Test Results - Lift-Off Rotator Cuff Test Results + PT-OP-M Strength Start: 12/23/19 07:56 Freq: Status: Active Protocol: Document 12/23/19 08:15 AMB (Rec: 12/25/19 08:14 AMB [email or web address]) Shoulder Strength Shoulder Manual Muscle Testing Right Flexion 4 Good Extension 4+ Good+ Abduction (C5) 4 Good External Rotation 4 Good Internal Rotation 4+ Good+ Left Flexion 3+ Fair+ Extension 4 Good Abduction (C5) 3- Fair- External Rotation 4- Good- Internal Rotation 4- Good- PT-OP-Q Treatments Start: 12/23/19 07:56 Freq: Status: Active Protocol: Document 02/06/20 13:30 AMB (Rec: 02/06/20 14:15 AMB [id number]) Therapeutic Exercises Supine Exercises 2 Supine Exercise Name alternating isometrics Comments 90 degrees all planes 1 Supine Exercise Name shoulder flexion Comments 1# to 45 degrees Sidelying Exercises 2 Sidelying Exercise Name shoulder ER Reps/Minutes 2x10 Comments 1# 1 Sidelying Exercise Name shoulder abd Reps/Minutes 2x10 Comments 1# to 45 degrees Sitting Exercises 2 Sitting Exercise Name velia- flexion, scaption Reps/Minutes 5 min Manual Therapy Treatment Soft Tissue Mobilization 1 Body Location L shoulder Comments subscap, infraspinatus, anterior deltoid, PROM all planes Joint Mobilizations 1 Joint scapulothoracic Direction all planes Grade II Body Position Supine Taping 1 Body Location L shoulder Type of Tape Kinesio Tape Comments Y around GH joint, I for scap retract PT-OP-T Assessment and Plan Start: 12/23/19 07:56 Freq: Status: Active Protocol: Document 02/06/20 13:30 AMB (Rec: 02/06/20 14:07 AMB [id number]) Physical Therapy Assessment Assessment Summary Assessment Pt seemed to tolerate increase in weights, next visit can give as HEP if she continues to tolerate it. Physical Therapy Plan Next Visit Focus/Plan Next Note Type Treatment Note Next Visit Plan Progress HEP with rotator cuff and scapular strengthening, address body mechanics/posture
--- NOTE | 2020-02-11 07:37 | PT.OTN ---
Current Diagnoses Pain in left shoulder (02/10/20) Physical Therapy Treatment Note PT-OP-A Visit Information Start: 12/23/19 07:56 Freq: Status: Active Protocol: Document 02/10/20 13:31 AMB (Rec: 02/10/20 14:12 AMB [id number]) Out-Patient Physical Therapy Visit Information Visit Information Visit Type Treatment Note Visit Start Time 13:31 Visit Stop Time 14:15 Total Visit Minutes 44 PT-OP-B Current Condition Start: 12/23/19 07:56 Freq: Status: Active Protocol: Document 12/23/19 08:12 AMB (Rec: 12/23/19 08:21 AMB [id number]) Current Condition History of Current Condition Onset Date 4 months ago Current Complaints L shoulder pain History of Current Condition Diane reports insidious onset shoulder pain, unable to lift L arm behind back or above shoulder. Difficulty and pain sleeping. History of R shoulder rotator cuff surgery around 2010. 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 Prior Functional Status Baseline Function- ADL's Independent Baseline Function- Mobility Independent Current Functional Impairments (Reported) Functional Limitations- ADL's Using the arm to carry, reach behind back, lift Personal Factors Other Personal Factors That May Effect DM II, hypothyroid, previous R Therapy/Recovery rotator cuff surgery x2 PT-OP-C Subjective Start: 12/23/19 07:56 Freq: Status: Active Protocol: Document 02/10/20 13:31 AMB (Rec: 02/10/20 14:12 AMB [id number]) OP-PT Subjective Patient Comments Patient Comments Difficulty with sleeping last night. PT-OP-K Range of Motion Start: 12/23/19 07:56 Freq: Status: Active Protocol: Document 12/23/19 08:15 AMB (Rec: 12/23/19 08:29 AMB [id number]) Shoulder Goniometric Range of Motion Shoulder Right Active Testing Position Sitting Flexion 165 Abduction 170 External Rotation at 0 degrees Abduction 50 Internal Rotation Behind Back (text) T6 Left Active Testing Position Standing Flexion 100 Extension 52 Abduction 80 External Rotation at 0 degrees Abduction 28 Internal Rotation Behind Back (text) buttocks PT-OP-L Special Tests Start: 12/23/19 07:56 Freq: Status: Active Protocol: Document 12/23/19 08:15 AMB (Rec: 12/25/19 08:14 AMB [email or web address]) Special Tests Shoulder Special Tests Empty Can Test Results - Lift-Off Rotator Cuff Test Results + PT-OP-M Strength Start: 12/23/19 07:56 Freq: Status: Active Protocol: Document 12/23/19 08:15 AMB (Rec: 12/25/19 08:14 AMB [email or web address]) Shoulder Strength Shoulder Manual Muscle Testing Right Flexion 4 Good Extension 4+ Good+ Abduction (C5) 4 Good External Rotation 4 Good Internal Rotation 4+ Good+ Left Flexion 3+ Fair+ Extension 4 Good Abduction (C5) 3- Fair- External Rotation 4- Good- Internal Rotation 4- Good- PT-OP-Q Treatments Start: 12/23/19 07:56 Freq: Status: Active Protocol: Document 02/10/20 13:30 AMB (Rec: 02/11/20 07:35 AMB [email or web address]) Therapeutic Exercises Supine Exercises 2 Supine Exercise Name alternating isometrics Comments 90 degrees all planes 1 Supine Exercise Name shoulder flexion Reps/Minutes 2x5 Comments 1# to 45 degrees Sidelying Exercises 2 Sidelying Exercise Name shoulder ER Reps/Minutes 2x10 Comments 1# 1 Sidelying Exercise Name shoulder abd Reps/Minutes 2x10 Comments 1# to 45 degrees Standing Exercises 3 Standing Exercise Name shoulder extension AAROM with dowel Reps/Minutes 2x10 Comments dowel, added IR Manual Therapy Treatment Soft Tissue Mobilization 1 Body Location L shoulder Comments subscap, infraspinatus, anterior deltoid, PROM all planes Joint Mobilizations 1 Joint scapulothoracic Direction all planes Grade III Body Position Supine Taping 1 Body Location L shoulder Type of Tape Kinesio Tape Comments Y around GH joint, I for scap retract PT-OP-T Assessment and Plan Start: 12/23/19 07:56 Freq: Status: Active Protocol: Document 02/10/20 13:31 AMB (Rec: 02/10/20 14:12 AMB [id number]) Physical Therapy Assessment Assessment Summary Assessment Pt tolerated exercises at home well, discussed role of forward shoulder making shoulder movement more restricted. Pt understands, but continues to be concerned with non-painful popping. Is hopeful that was able to tolerate strengthening, but IR continues to be painful and that is her main goal in order to don bra. Physical Therapy Plan Next Visit Focus/Plan Next Note Type Treatment Note Next Visit Plan Progress HEP with rotator cuff and scapular strengthening, address body mechanics/posture
--- NOTE | 2020-02-17 15:39 | PT.OPPOC ---
Physical, Occupational & Speech Therapy At [facility] Current Diagnoses Pain in left shoulder (02/17/20) Visit Care Team Role Provider Type Jean Marie Jaimes DO Referring Provider Non-Staff Specialty: Family Practice Address: [address] [place] [address], [id number] Email: Attending Provider Specialty: Address: Phone: Fax: Email: Plan Of Care PT-OP-T Assessment and Plan Start: 12/23/19 07:56 Freq: Status: Active Protocol: Document 02/17/20 13:30 AMB (Rec: 02/17/20 13:46 AMB [id number]) Physical Therapy Assessment Goals Three Impairment Pain Short Term Goal (STG) Diane will perform upper body dressing with shoulder pain of 5/10 or less. 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 LTG Duration 8 weeks Two Impairment Strength Short Term Goal (STG) Diane will improve her shoulder abduction strength to 4/5 or better. STG Duration 4 weeks Shelter Goal (LTG) Diane will improve her shoulder strength so that she can lift a plate to an upper cabinet without shoulder compensations. LTG Duration 8 weeks One Impairment ROM Short Term Goal (STG) Diane will improve her shoulder AROM flexion to 140 degrees. STG Duration 4 weeks Cw Operator Goal (LTG) Diane will improve her shoulder AROM internal rotation so that she can clasp her bra behind her back. LTG Duration 8 weeks Assessment Summary Assessment Diane has improved with her flexion ROM, her internal rom and abduction have improved, but not as much as we would like. She continues to be concerned about her shoulder popping but it is not a painful pop. Did push her a bit more today to work into that internal rotation as that is her goal, and will assess how she tolerates a slightly more aggressive approach. Physical Therapy Plan Frequency and Duration Frequency of Treatment 2x/Week Duration of Treatment 6 weeks Plan of Care Start Date 02/17/20 Plan of Care End Date 03/30/20 Therapeutic Interventions Therapeutic Interventions Home Exercise Program,Joint Mobilizations,Manual Therapy, Neuromuscular Re-education, Self-Care/Home Management, Therapeutic Activities, Therapeutic Exercises Modalities Cold Pack/Ice Massage,Electric Stimulation,Hot Packs, Ultrasound Next Visit Focus/Plan Next Note Type Treatment Note Next Visit Plan Progress HEP with rotator cuff and scapular strengthening, address body mechanics/posture Plan of Care Dates Plan of Care Start Date 02/17/20 Plan of Care End Date 03/30/20 Electronically Signed by: Liza Rodriguez, PT 02/18/20 8009 Please Sign and Return: I have reviewed this Plan of Care and certify that the skilled therapy services above are required to meet the patient?s needs. Physician Signature Date Printed Name and Credentials Clinical Instructor Signature Printed Name and Credentials
--- NOTE | 2020-02-17 15:39 | PT.OTN ---
Current Diagnoses Pain in left shoulder (02/17/20) Physical Therapy Treatment Note PT-OP-A Visit Information Start: 12/23/19 07:56 Freq: Status: Active Protocol: Document 02/17/20 13:30 AMB (Rec: 02/17/20 13:46 AMB [id number]) Out-Patient Physical Therapy Visit Information Visit Information Visit Type Progress Note Visit Start Time 13:30 Visit Stop Time 14:15 Total Visit Minutes 45 Visit Number 8 PT-OP-B Current Condition Start: 12/23/19 07:56 Freq: Status: Active Protocol: Document 12/23/19 08:12 AMB (Rec: 12/23/19 08:21 AMB [id number]) Current Condition History of Current Condition Onset Date 4 months ago Current Complaints L shoulder pain History of Current Condition Diane reports insidious onset shoulder pain, unable to lift L arm behind back or above shoulder. Difficulty and pain sleeping. History of R shoulder rotator cuff surgery around 2010. 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 Prior Functional Status Baseline Function- ADL's Independent Baseline Function- Mobility Independent Current Functional Impairments (Reported) Functional Limitations- ADL's Using the arm to carry, reach behind back, lift Personal Factors Other Personal Factors That May Effect DM II, hypothyroid, previous R Therapy/Recovery rotator cuff surgery x2 PT-OP-C Subjective Start: 12/23/19 07:56 Freq: Status: Active Protocol: Document 02/17/20 13:30 AMB (Rec: 02/17/20 13:46 AMB [id number]) OP-PT Subjective Patient Comments Patient Comments Difficulty with sleeping last night, sore for 3 days after PT. Did roll picker turkey for thanksgiving and put it in the oven without flaring it. PT-OP-K Range of Motion Start: 12/23/19 07:56 Freq: Status: Active Protocol: Document 02/17/20 13:46 AMB (Rec: 02/17/20 13:56 AMB [id number]) Shoulder Goniometric Range of Motion Shoulder Right Active Testing Position Sitting Flexion 165 Abduction 170 External Rotation at 0 degrees Abduction 50 Internal Rotation Behind Back (text) T6 Left Active Testing Position Standing Flexion 134 Extension 52 Abduction 92 External Rotation at 0 degrees Abduction 40 Internal Rotation Behind Back (text) buttocks PT-OP-L Special Tests Start: 12/23/19 07:56 Freq: Status: Active Protocol: Document 12/23/19 08:15 AMB (Rec: 12/25/19 08:14 AMB [email or web address]) Special Tests Shoulder Special Tests Empty Can Test Results - Lift-Off Rotator Cuff Test Results + PT-OP-M Strength Start: 12/23/19 07:56 Freq: Status: Active Protocol: Document 12/23/19 08:15 AMB (Rec: 12/25/19 08:14 AMB [email or web address]) Shoulder Strength Shoulder Manual Muscle Testing Right Flexion 4 Good Extension 4+ Good+ Abduction (C5) 4 Good External Rotation 4 Good Internal Rotation 4+ Good+ Left Flexion 3+ Fair+ Extension 4 Good Abduction (C5) 3- Fair- External Rotation 4- Good- Internal Rotation 4- Good- PT-OP-Q Treatments Start: 12/23/19 07:56 Freq: Status: Active Protocol: Document 02/18/20 13:30 AMB (Rec: 02/18/20 15:39 AMB [id number]) Therapeutic Exercises Sidelying Exercises 3 Sidelying Exercise Name sleeper stretch Reps/Minutes 30x4 2 Sidelying Exercise Name shoulder ER Reps/Minutes 2x10 Comments 1# 1 Sidelying Exercise Name shoulder abd Reps/Minutes 2x10 Comments 1# to 45 degrees Sitting Exercises 2 Sitting Exercise Name velia- flexion, scaption Reps/Minutes 5 min Standing Exercises 3 Standing Exercise Name shoulder extension AAROM with dowel Reps/Minutes 2x10 Comments dowel, added IR Manual Therapy Treatment Soft Tissue Mobilization 1 Body Location L shoulder Comments subscap, infraspinatus, anterior deltoid, PROM all planes PT-OP-T Assessment and Plan Start: 12/23/19 07:56 Freq: Status: Active Protocol: Document 02/17/20 13:30 AMB (Rec: 02/17/20 13:46 AMB [id number]) Physical Therapy Assessment Goals Three Impairment Pain Short Term Goal (STG) Diane will perform upper body dressing with shoulder pain of 5/10 or less. 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 LTG Duration 8 weeks Two Impairment Strength Short Term Goal (STG) Diane will improve her shoulder abduction strength to 4/5 or better. STG Duration 4 weeks Tool Adjuster Goal (LTG) Diane will improve her shoulder strength so that she can lift a plate to an upper cabinet without shoulder compensations. LTG Duration 8 weeks One Impairment ROM Short Term Goal (STG) Diane will improve her shoulder AROM flexion to 140 degrees. STG Duration 4 weeks Tool Adjuster Goal (LTG) Diane will improve her shoulder AROM internal rotation so that she can clasp her bra behind her back. LTG Duration 8 weeks Assessment Summary Assessment Diane has improved with her flexion ROM, her internal rom and abduction have improved, but not as much as we would like. She continues to be concerned about her shoulder popping but it is not a painful pop. Did push her a bit more today to work into that internal rotation as that is her goal, and will assess how she tolerates a slightly more aggressive approach. Physical Therapy Plan Frequency and Duration Frequency of Treatment 2x/Week Duration of Treatment 6 weeks Plan of Care Start Date 02/17/20 Plan of Care End Date 03/30/20 Therapeutic Interventions Therapeutic Interventions Home Exercise Program,Joint Mobilizations,Manual Therapy, Neuromuscular Re-education, Self-Care/Home Management, Therapeutic Activities, Therapeutic Exercises Modalities Cold Pack/Ice Massage,Electric Stimulation,Hot Packs, Ultrasound Next Visit Focus/Plan Next Note Type Treatment Note Next Visit Plan Progress HEP with rotator cuff and scapular strengthening, address body mechanics/posture
--- NOTE | 2020-02-20 14:11 | PT.OTN ---
Current Diagnoses Pain in left shoulder (02/20/20) Physical Therapy Treatment Note PT-OP-A Visit Information Start: 12/23/19 07:56 Freq: Status: Active Protocol: Document 02/20/20 13:30 AMB (Rec: 02/20/20 14:10 AMB [id number]) Out-Patient Physical Therapy Visit Information Visit Information Visit Type Treatment Note Visit Start Time 13:35 Visit Stop Time 14:15 Total Visit Minutes 40 Visit Number 9 PT-OP-B Current Condition Start: 12/23/19 07:56 Freq: Status: Active Protocol: Document 12/23/19 08:12 AMB (Rec: 12/23/19 08:21 AMB [id number]) Current Condition History of Current Condition Onset Date 4 months ago Current Complaints L shoulder pain History of Current Condition Diane reports insidious onset shoulder pain, unable to lift L arm behind back or above shoulder. Difficulty and pain sleeping. History of R shoulder rotator cuff surgery around 2010. 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 Prior Functional Status Baseline Function- ADL's Independent Baseline Function- Mobility Independent Current Functional Impairments (Reported) Functional Limitations- ADL's Using the arm to carry, reach behind back, lift Personal Factors Other Personal Factors That May Effect DM II, hypothyroid, previous R Therapy/Recovery rotator cuff surgery x2 PT-OP-C Subjective Start: 12/23/19 07:56 Freq: Status: Active Protocol: Document 02/20/20 13:30 AMB (Rec: 02/20/20 14:10 AMB [id number]) OP-PT Subjective Patient Comments Patient Comments Pt continues to question why her shoulder is hurting. PT-OP-K Range of Motion Start: 12/23/19 07:56 Freq: Status: Active Protocol: Document 02/17/20 13:46 AMB (Rec: 02/17/20 13:56 AMB [id number]) Shoulder Goniometric Range of Motion Shoulder Right Active Testing Position Sitting Flexion 165 Abduction 170 External Rotation at 0 degrees Abduction 50 Internal Rotation Behind Back (text) T6 Left Active Testing Position Standing Flexion 134 Extension 52 Abduction 92 External Rotation at 0 degrees Abduction 40 Internal Rotation Behind Back (text) buttocks PT-OP-L Special Tests Start: 12/23/19 07:56 Freq: Status: Active Protocol: Document 12/23/19 08:15 AMB (Rec: 12/25/19 08:14 AMB [email or web address]) Special Tests Shoulder Special Tests Empty Can Test Results - Lift-Off Rotator Cuff Test Results + PT-OP-M Strength Start: 12/23/19 07:56 Freq: Status: Active Protocol: Document 12/23/19 08:15 AMB (Rec: 12/25/19 08:14 AMB [email or web address]) Shoulder Strength Shoulder Manual Muscle Testing Right Flexion 4 Good Extension 4+ Good+ Abduction (C5) 4 Good External Rotation 4 Good Internal Rotation 4+ Good+ Left Flexion 3+ Fair+ Extension 4 Good Abduction (C5) 3- Fair- External Rotation 4- Good- Internal Rotation 4- Good- PT-OP-Q Treatments Start: 12/23/19 07:56 Freq: Status: Active Protocol: Document 02/20/20 13:30 AMB (Rec: 02/20/20 14:10 AMB [id number]) Therapeutic Exercises Sidelying Exercises 3 Sidelying Exercise Name sleeper stretch Reps/Minutes 30x4 2 Sidelying Exercise Name shoulder ER Reps/Minutes 2x10 Comments 1# 1 Sidelying Exercise Name shoulder abd Reps/Minutes 2x10 Comments 1# to 45 degrees Sitting Exercises 2 Sitting Exercise Name velia- flexion, scaption Reps/Minutes 5 min Manual Therapy Treatment Soft Tissue Mobilization 1 Body Location L shoulder Comments subscap, infraspinatus, anterior deltoid, PROM all planes Joint Mobilizations 1 Joint scapulothoracic Direction all planes Grade III Body Position Supine Taping 1 Body Location L shoulder Type of Tape Kinesio Tape Comments Y around GH joint, I for scap retract PT-OP-T Assessment and Plan Start: 12/23/19 07:56 Freq: Status: Active Protocol: Document 02/20/20 13:30 AMB (Rec: 02/20/20 14:10 AMB [id number]) Physical Therapy Assessment Assessment Summary Assessment Diane continues to have pain with internal rotation. Continued to educate pt in anatomy of shoulder, and reasoning of exercises/pain. Physical Therapy Plan Next Visit Focus/Plan Next Note Type Treatment Note Next Visit Plan Further Address scapula
--- NOTE | 2020-03-02 11:53 | PT.OTN ---
Current Diagnoses Pain in left shoulder (03/02/20) Physical Therapy Treatment Note PT-OP-A Visit Information Start: 12/23/19 07:56 Freq: Status: Active Protocol: Document 03/02/20 11:00 AMB (Rec: 03/02/20 11:17 AMB [id number]) Out-Patient Physical Therapy Visit Information Visit Information Visit Type Treatment Note Visit Start Time 11:00 Visit Stop Time 11:45 Total Visit Minutes 40 Visit Number 10 PT-OP-B Current Condition Start: 12/23/19 07:56 Freq: Status: Active Protocol: Document 12/23/19 08:12 AMB (Rec: 12/23/19 08:21 AMB [id number]) Current Condition History of Current Condition Onset Date 4 months ago Current Complaints L shoulder pain History of Current Condition Diane reports insidious onset shoulder pain, unable to lift L arm behind back or above shoulder. Difficulty and pain sleeping. History of R shoulder rotator cuff surgery around 2010. 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 Prior Functional Status Baseline Function- ADL's Independent Baseline Function- Mobility Independent Current Functional Impairments (Reported) Functional Limitations- ADL's Using the arm to carry, reach behind back, lift Personal Factors Other Personal Factors That May Effect DM II, hypothyroid, previous R Therapy/Recovery rotator cuff surgery x2 PT-OP-C Subjective Start: 12/23/19 07:56 Freq: Status: Active Protocol: Document 03/02/20 11:00 AMB (Rec: 03/02/20 11:17 AMB [id number]) OP-PT Subjective Patient Comments Patient Comments Pt is reporting improved flexion. Sleeping is getting improved. PT-OP-K Range of Motion Start: 12/23/19 07:56 Freq: Status: Active Protocol: Document 02/17/20 13:46 AMB (Rec: 02/17/20 13:56 AMB [id number]) Shoulder Goniometric Range of Motion Shoulder Right Active Testing Position Sitting Flexion 165 Abduction 170 External Rotation at 0 degrees Abduction 50 Internal Rotation Behind Back (text) T6 Left Active Testing Position Standing Flexion 134 Extension 52 Abduction 92 External Rotation at 0 degrees Abduction 40 Internal Rotation Behind Back (text) buttocks PT-OP-L Special Tests Start: 12/23/19 07:56 Freq: Status: Active Protocol: Document 12/23/19 08:15 AMB (Rec: 12/25/19 08:14 AMB [email or web address]) Special Tests Shoulder Special Tests Empty Can Test Results - Lift-Off Rotator Cuff Test Results + PT-OP-M Strength Start: 12/23/19 07:56 Freq: Status: Active Protocol: Document 12/23/19 08:15 AMB (Rec: 12/25/19 08:14 AMB [email or web address]) Shoulder Strength Shoulder Manual Muscle Testing Right Flexion 4 Good Extension 4+ Good+ Abduction (C5) 4 Good External Rotation 4 Good Internal Rotation 4+ Good+ Left Flexion 3+ Fair+ Extension 4 Good Abduction (C5) 3- Fair- External Rotation 4- Good- Internal Rotation 4- Good- PT-OP-Q Treatments Start: 12/23/19 07:56 Freq: Status: Active Protocol: Document 03/02/20 11:00 AMB (Rec: 03/02/20 11:52 AMB [id number]) Therapeutic Exercises Sitting Exercises 2 Sitting Exercise Name velia- flexion, scaption Reps/Minutes 5 min Manual Therapy Treatment Soft Tissue Mobilization 1 Body Location L shoulder Comments subscap, infraspinatus, anterior deltoid, PROM all planes Joint Mobilizations 2 Joint posteriorinferior glide Direction GH Grade III 1 Joint scapulothoracic Direction all planes Grade III Body Position Supine PT-OP-T Assessment and Plan Start: 12/23/19 07:56 Freq: Status: Active Protocol: Document 03/02/20 11:00 AMB (Rec: 03/02/20 11:17 AMB [id number]) Physical Therapy Assessment Assessment Summary Assessment Considering recent improvement , Diane is going to ask for more authorization. Extensive education on mechanics of her injury, worked a lot on manual therapy today to work into internal/ external rotation and abduction Physical Therapy Plan Next Visit Focus/Plan Next Note Type Treatment Note Next Visit Plan Continue scapula work
--- NOTE | 2020-03-05 12:00 | PT.OTN ---
Current Diagnoses Pain in left shoulder (03/05/20) Physical Therapy Treatment Note PT-OP-A Visit Information Start: 12/23/19 07:56 Freq: Status: Active Protocol: Document 03/05/20 11:22 MA (Rec: 03/05/20 12:05 MA [id number]) Out-Patient Physical Therapy Visit Information Visit Information Visit Type Treatment Note Visit Start Time 11:16 Visit Stop Time 11:58 Total Visit Minutes 42 Visit Number 11 Number of PROJECT ACCOUNTANT Visits 1 PT-OP-B Current Condition Start: 12/23/19 07:56 Freq: Status: Active Protocol: Document 12/23/19 08:12 AMB (Rec: 12/23/19 08:21 AMB [id number]) Current Condition History of Current Condition Onset Date 4 months ago Current Complaints L shoulder pain History of Current Condition Diane reports insidious onset shoulder pain, unable to lift L arm behind back or above shoulder. Difficulty and pain sleeping. History of R shoulder rotator cuff surgery around 2010. 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 Prior Functional Status Baseline Function- ADL's Independent Baseline Function- Mobility Independent Current Functional Impairments (Reported) Functional Limitations- ADL's Using the arm to carry, reach behind back, lift Personal Factors Other Personal Factors That May Effect DM II, hypothyroid, previous R Therapy/Recovery rotator cuff surgery x2 PT-OP-C Subjective Start: 12/23/19 07:56 Freq: Status: Active Protocol: Document 03/05/20 11:22 MA (Rec: 03/05/20 12:05 MA [id number]) OP-PT Subjective Patient Comments Patient Comments Pt states her shd pops when she lowers her arm. Sometimes she feels pain when reaching for things if she reaches wrong. She has requested more appts with , but states they said it could take 7-10 days PT-OP-K Range of Motion Start: 12/23/19 07:56 Freq: Status: Active Protocol: Document 02/17/20 13:46 AMB (Rec: 02/17/20 13:56 AMB [id number]) Shoulder Goniometric Range of Motion Shoulder Right Active Testing Position Sitting Flexion 165 Abduction 170 External Rotation at 0 degrees Abduction 50 Internal Rotation Behind Back (text) T6 Left Active Testing Position Standing Flexion 134 Extension 52 Abduction 92 External Rotation at 0 degrees Abduction 40 Internal Rotation Behind Back (text) buttocks PT-OP-L Special Tests Start: 12/23/19 07:56 Freq: Status: Active Protocol: Document 12/23/19 08:15 AMB (Rec: 12/25/19 08:14 AMB [email or web address]) Special Tests Shoulder Special Tests Empty Can Test Results - Lift-Off Rotator Cuff Test Results + PT-OP-M Strength Start: 12/23/19 07:56 Freq: Status: Active Protocol: Document 12/23/19 08:15 AMB (Rec: 12/25/19 08:14 AMB [email or web address]) Shoulder Strength Shoulder Manual Muscle Testing Right Flexion 4 Good Extension 4+ Good+ Abduction (C5) 4 Good External Rotation 4 Good Internal Rotation 4+ Good+ Left Flexion 3+ Fair+ Extension 4 Good Abduction (C5) 3- Fair- External Rotation 4- Good- Internal Rotation 4- Good- PT-OP-Q Treatments Start: 12/23/19 07:56 Freq: Status: Active Protocol: Document 03/05/20 11:22 MA (Rec: 03/05/20 12:05 MA [id number]) Cardio Equipment Upper Body Ergometer (UBE) Duration (Minutes) 8 RPM 65 Seat Position 13 Height 2.5 Other 4 min fwd, 4 bkwd Therapeutic Exercises Supine Exercises protraction Supine Exercise Name serratus punch Side left Resistance 3# Reps/Minutes 2x10 1 Supine Exercise Name \ Sitting Exercises 2 Sitting Exercise Name velia- flexion, scaption Side bilateral Reps/Minutes 5 min Manual Therapy Treatment Soft Tissue Mobilization 1 Body Location L shoulder Comments Supraspinatus, infraspinatus, anterior deltoid, PROM all planes PT-OP-T Assessment and Plan Start: 12/23/19 07:56 Freq: Status: Active Protocol: Document 03/05/20 11:22 MA (Rec: 03/05/20 12:05 MA [id number]) Physical Therapy Assessment Goals Three Impairment Pain Short Term Goal (STG) Diane will perform upper body dressing with shoulder pain of 5/10 or less. 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 LTG Duration 8 weeks Two Impairment Strength Short Term Goal (STG) Diane will improve her shoulder abduction strength to 4/5 or better. STG Duration 4 weeks Teacher'S Aide Goal (LTG) Diane will improve her shoulder strength so that she can lift a plate to an upper cabinet without shoulder compensations. LTG Duration 8 weeks One Impairment ROM Short Term Goal (STG) Diane will improve her shoulder AROM flexion to 140 degrees. STG Duration 4 weeks Teacher'S Aide Goal (LTG) Diane will improve her shoulder AROM internal rotation so that she can clasp her bra behind her back. LTG Duration 8 weeks Assessment Summary Assessment Next appt is last appt until authorization goes through. Could take 7-10 business days from 03/02. Pt had no pain with UBE today. Some pain during scaption exercise with velia 4/10. Worked on STM of supraspinatus and infraspinaus with pt stating it felt much better after. During PROM pt had 6/10 pain during ER and ABD. Pt would benefit from more therapy for improving shd ROM and decreasing pain Physical Therapy Plan Frequency and Duration Frequency of Treatment 2x/Week Duration of Treatment 6 weeks Plan of Care Start Date 02/17/20 Plan of Care End Date 03/30/20 Next Visit Focus/Plan Next Note Type Treatment Note Next Visit Plan Continue STM, PROM; start with UBE
--- NOTE | 2020-03-09 15:47 | PT.OTN ---
Current Diagnoses Pain in left shoulder (03/09/20) Physical Therapy Treatment Note PT-OP-A Visit Information Start: 12/23/19 07:56 Freq: Status: Active Protocol: Document 03/09/20 13:30 AMB (Rec: 03/09/20 13:44 AMB [id number]) Out-Patient Physical Therapy Visit Information Visit Information Visit Type Treatment Note Visit Start Time 13:30 Visit Stop Time 14:15 Total Visit Minutes 45 Visit Number 12 Number of VASCULAR SURGEON Visits 0 PT-OP-B Current Condition Start: 12/23/19 07:56 Freq: Status: Active Protocol: Document 12/23/19 08:12 AMB (Rec: 12/23/19 08:21 AMB [id number]) Current Condition History of Current Condition Onset Date 4 months ago Current Complaints L shoulder pain History of Current Condition Diane reports insidious onset shoulder pain, unable to lift L arm behind back or above shoulder. Difficulty and pain sleeping. History of R shoulder rotator cuff surgery around 2010. 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 Prior Functional Status Baseline Function- ADL's Independent Baseline Function- Mobility Independent Current Functional Impairments (Reported) Functional Limitations- ADL's Using the arm to carry, reach behind back, lift Personal Factors Other Personal Factors That May Effect DM II, hypothyroid, previous R Therapy/Recovery rotator cuff surgery x2 PT-OP-C Subjective Start: 12/23/19 07:56 Freq: Status: Active Protocol: Document 03/09/20 13:30 AMB (Rec: 03/09/20 13:44 AMB [id number]) OP-PT Subjective Patient Comments Patient Comments Pt reports she can still move the arm and get pain, but flexion is continuing to improve, internal rotation is tough but sleeper stretch is getting easier. PT-OP-K Range of Motion Start: 12/23/19 07:56 Freq: Status: Active Protocol: Document 02/17/20 13:46 AMB (Rec: 02/17/20 13:56 AMB [id number]) Shoulder Goniometric Range of Motion Shoulder Right Active Testing Position Sitting Flexion 165 Abduction 170 External Rotation at 0 degrees Abduction 50 Internal Rotation Behind Back (text) T6 Left Active Testing Position Standing Flexion 134 Extension 52 Abduction 92 External Rotation at 0 degrees Abduction 40 Internal Rotation Behind Back (text) buttocks PT-OP-L Special Tests Start: 12/23/19 07:56 Freq: Status: Active Protocol: Document 12/23/19 08:15 AMB (Rec: 12/25/19 08:14 AMB [email or web address]) Special Tests Shoulder Special Tests Empty Can Test Results - Lift-Off Rotator Cuff Test Results + PT-OP-M Strength Start: 12/23/19 07:56 Freq: Status: Active Protocol: Document 12/23/19 08:15 AMB (Rec: 12/25/19 08:14 AMB [email or web address]) Shoulder Strength Shoulder Manual Muscle Testing Right Flexion 4 Good Extension 4+ Good+ Abduction (C5) 4 Good External Rotation 4 Good Internal Rotation 4+ Good+ Left Flexion 3+ Fair+ Extension 4 Good Abduction (C5) 3- Fair- External Rotation 4- Good- Internal Rotation 4- Good- PT-OP-Q Treatments Start: 12/23/19 07:56 Freq: Status: Active Protocol: Document 03/09/20 13:30 AMB (Rec: 03/09/20 14:13 AMB [id number]) Therapeutic Exercises Sidelying Exercises 3 Sidelying Exercise Name sleeper stretch Reps/Minutes 30x4 2 Sidelying Exercise Name shoulder ER Reps/Minutes 2x10 Comments 2# 1 Sidelying Exercise Name shoulder abd Reps/Minutes 2x10 Comments 2# to 45 degrees Sitting Exercises 2 Sitting Exercise Name velia- flexion, scaption Side bilateral Reps/Minutes 5 min Manual Therapy Treatment Soft Tissue Mobilization 1 Body Location L shoulder Comments Supraspinatus, infraspinatus, anterior deltoid, PROM all planes Manual Techniques 1 Type passive abduction and IR c extension PT-OP-T Assessment and Plan Start: 12/23/19 07:56 Freq: Status: Active Protocol: Document 03/09/20 13:30 AMB (Rec: 03/09/20 13:44 AMB [id number]) Physical Therapy Assessment Assessment Summary Assessment Diane continues to be limited in abduction and IR, but did work into those more with manual therapy, tolerated 2# increase with ER and abd well. Physical Therapy Plan Next Visit Focus/Plan Next Note Type Treatment Note Next Visit Plan Continue STM, PROM; start with UBE
--- NOTE | 2020-03-26 09:45 | PT.OTN ---
Current Diagnoses Pain in left shoulder (03/26/20) Physical Therapy Treatment Note PT-OP-A Visit Information Start: 12/23/19 07:56 Freq: Status: Active Protocol: Document 03/26/20 09:03 MA (Rec: 03/26/20 09:45 MA [id number]) Out-Patient Physical Therapy Visit Information Visit Information Visit Type Treatment Note Visit Start Time 09:00 Visit Stop Time 09:41 Total Visit Minutes 41 Visit Number 13 Number of KEY ENTRY OPERATOR Visits 1 PT-OP-B Current Condition Start: 12/23/19 07:56 Freq: Status: Active Protocol: Document 12/23/19 08:12 AMB (Rec: 12/23/19 08:21 AMB [id number]) Current Condition History of Current Condition Onset Date 4 months ago Current Complaints L shoulder pain History of Current Condition Diane reports insidious onset shoulder pain, unable to lift L arm behind back or above shoulder. Difficulty and pain sleeping. History of R shoulder rotator cuff surgery around 2010. 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 Prior Functional Status Baseline Function- ADL's Independent Baseline Function- Mobility Independent Current Functional Impairments (Reported) Functional Limitations- ADL's Using the arm to carry, reach behind back, lift Personal Factors Other Personal Factors That May Effect DM II, hypothyroid, previous R Therapy/Recovery rotator cuff surgery x2 PT-OP-C Subjective Start: 12/23/19 07:56 Freq: Status: Active Protocol: Document 03/26/20 09:03 MA (Rec: 03/26/20 09:45 MA [id number]) OP-PT Subjective Patient Comments Patient Comments Pt has recently had popping in a new area of the shd. It only happened one time and she points to superior lateral L shd PT-OP-K Range of Motion Start: 12/23/19 07:56 Freq: Status: Active Protocol: Document 02/17/20 13:46 AMB (Rec: 02/17/20 13:56 AMB [id number]) Shoulder Goniometric Range of Motion Shoulder Right Active Testing Position Sitting Flexion 165 Abduction 170 External Rotation at 0 degrees Abduction 50 Internal Rotation Behind Back (text) T6 Left Active Testing Position Standing Flexion 134 Extension 52 Abduction 92 External Rotation at 0 degrees Abduction 40 Internal Rotation Behind Back (text) buttocks PT-OP-L Special Tests Start: 12/23/19 07:56 Freq: Status: Active Protocol: Document 12/23/19 08:15 AMB (Rec: 12/25/19 08:14 AMB [email or web address]) Special Tests Shoulder Special Tests Empty Can Test Results - Lift-Off Rotator Cuff Test Results + PT-OP-M Strength Start: 12/23/19 07:56 Freq: Status: Active Protocol: Document 12/23/19 08:15 AMB (Rec: 12/25/19 08:14 AMB [email or web address]) Shoulder Strength Shoulder Manual Muscle Testing Right Flexion 4 Good Extension 4+ Good+ Abduction (C5) 4 Good External Rotation 4 Good Internal Rotation 4+ Good+ Left Flexion 3+ Fair+ Extension 4 Good Abduction (C5) 3- Fair- External Rotation 4- Good- Internal Rotation 4- Good- PT-OP-Q Treatments Start: 12/23/19 07:56 Freq: Status: Active Protocol: Document 03/26/20 09:03 MA (Rec: 03/26/20 09:45 MA [id number]) Cardio Equipment Upper Body Ergometer (UBE) Duration (Minutes) 8 RPM 65 Seat Position 13 Height 2.5 Other 4 min fwd, 4 bkwd Therapeutic Exercises Supine Exercises IR/ER Supine Exercise Name at 90 degrees abd Resistance 1# Sidelying Exercises 3 Sidelying Exercise Name sleeper stretch Reps/Minutes 2x60 sec 2 Sidelying Exercise Name shoulder ER Reps/Minutes 2x10 Comments 2# 1 Sidelying Exercise Name shoulder abd Reps/Minutes 2x10 Comments 2# to 45 degrees Sitting Exercises 2 Sitting Exercise Name velia- flexion, scaption Side bilateral Reps/Minutes 5 min Standing Exercises Wall slides Standing Exercise Name shd flexion Side left Comments cues to avoid abd 3 Standing Exercise Name shoulder extension Side bilateral Equipment Used TB#2 Reps/Minutes 2x10 Comments 1 set with TB1, 1 set TB2 2 Standing Exercise Name t band rows Side bilateral Equipment Used #2 t band Reps/Minutes 2x10 Manual Therapy Treatment Soft Tissue Mobilization 1 Body Location L shoulder Comments Supraspinatus, infraspinatus, anterior deltoid, PROM all planes PT-OP-T Assessment and Plan Start: 12/23/19 07:56 Freq: Status: Active Protocol: Document 03/26/20 09:03 MA (Rec: 03/26/20 09:45 MA [id number]) Physical Therapy Assessment Goals Three Impairment Pain Short Term Goal (STG) Diane will perform upper body dressing with shoulder pain of 5/10 or less. 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 LTG Duration 8 weeks Two Impairment Strength Short Term Goal (STG) Diane will improve her shoulder abduction strength to 4/5 or better. STG Duration 4 weeks Correction Goal (LTG) Diane will improve her shoulder strength so that she can lift a plate to an upper cabinet without shoulder compensations. LTG Duration 8 weeks One Impairment ROM Short Term Goal (STG) Diane will improve her shoulder AROM flexion to 140 degrees. STG Duration 4 weeks Correction Goal (LTG) Diane will improve her shoulder AROM internal rotation so that she can clasp her bra behind her back. LTG Duration 8 weeks Assessment Summary Assessment Reviewed HEP sleeper stretch today using 1# weight because pt does not like pushing on her arm stating it is uncomfortable and she feels her shd pops up. Able to maintain shd depression with weight. Pt was not tender to palpation during STM showing improvement from previous sessions. Worked on increasing ROM into ER/IR supine today with shd abd to 90 degrees holding 2# weight. Pt is having less pain and has increased ROM in all planes but feels her progress is slower than she would like. Educated pt on how recovery takes time and not to overdo it at home with her exercises. Physical Therapy Plan Frequency and Duration Frequency of Treatment 2x/Week Duration of Treatment 6 weeks Plan of Care Start Date 02/17/20 Plan of Care End Date 03/30/20 Next Visit Focus/Plan Next Note Type Treatment Note Next Visit Plan Continue IR/ER supine with weight and sleeper stetch with light weight; work on PROM all planes and STM to L shd.
--- NOTE | 2020-03-26 13:03 | PT.OPPOC ---
Physical, Occupational & Speech Therapy At [facility] Current Diagnoses Pain in left shoulder (03/26/20) Visit Care Team Role Provider Type Jean Marie Jaimes DO Referring Provider Non-Staff Specialty: Family Practice Address: [address] [place] [address], [id number] Email: Attending Provider Specialty: Address: Phone: Fax: Email: Plan Of Care PT-OP-T Assessment and Plan Start: 12/23/19 07:56 Freq: Status: Active Protocol: Document 03/26/20 12:57 AMB (Rec: 03/26/20 13:01 AMB [email or web address]) Physical Therapy Assessment Goals Three Impairment Pain Short Term Goal (STG) Diane will perform upper body dressing with shoulder pain of 5/10 or less. 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 LTG Duration 8 weeks Two Impairment Strength Short Term Goal (STG) Diane will improve her shoulder abduction strength to 4/5 or better. 03/26: Progress made STG Duration 4 weeks Radiotelegraphist Goal (LTG) Diane will improve her shoulder strength so that she can lift a plate to an upper cabinet without shoulder compensations. LTG Duration 8 weeks One Impairment ROM Short Term Goal (STG) Diane will improve her shoulder AROM flexion to 140 degrees. STG Duration MET Radiotelegraphist Goal (LTG) Diane will improve her shoulder AROM internal rotation so that she can clasp her bra behind her back. 03/26 : Not met LTG Duration 8 weeks Assessment Summary Assessment Pt was not tender to palpation during STM showing improvement from previous sessions. Worked on increasing ROM into ER/IR supine today with shd abd to 90 degrees holding 2# weight. Pt is having less pain and has increased ROM in all planes but feels her progress is slower than she would like. Educated pt on how recovery takes time and not to overdo it at home with her exercises. Physical Therapy Plan Frequency and Duration Frequency of Treatment 2x/Week Duration of Treatment 6 weeks Plan of Care Start Date 03/26/20 Plan of Care End Date 05/21/20 Therapeutic Interventions Therapeutic Interventions Home Exercise Program,Joint Mobilizations,Manual Therapy, Neuromuscular Re-education, Self-Care/Home Management, Therapeutic Activities, Therapeutic Exercises Modalities Cold Pack/Ice Massage,Electric Stimulation,Hot Packs, Ultrasound Plan of Care Dates Plan of Care Start Date 03/26/20 Plan of Care End Date 05/21/20 Electronically Signed by: Liza Rodriguez, PT 03/26/20 1303 Please Sign and Return: I have reviewed this Plan of Care and certify that the skilled therapy services above are required to meet the patient?s needs. Physician Signature Date Printed Name and Credentials Clinical Instructor Signature Printed Name and Credentials
--- NOTE | 2020-04-02 11:15 | PT.OTN ---
Current Diagnoses Pain in left shoulder (04/02/20) Physical Therapy Treatment Note PT-OP-A Visit Information Start: 12/23/19 07:56 Freq: Status: Active Protocol: Document 04/02/20 10:34 MA (Rec: 04/02/20 11:14 MA [id number]) Out-Patient Physical Therapy Visit Information Visit Information Visit Type Treatment Note Visit Start Time 10:29 Visit Stop Time 11:10 Total Visit Minutes 41 Visit Number 14 Number of CAN CUTTER Visits 2 PT-OP-B Current Condition Start: 12/23/19 07:56 Freq: Status: Active Protocol: Document 12/23/19 08:12 AMB (Rec: 12/23/19 08:21 AMB [id number]) Current Condition History of Current Condition Onset Date 4 months ago Current Complaints L shoulder pain History of Current Condition Diane reports insidious onset shoulder pain, unable to lift L arm behind back or above shoulder. Difficulty and pain sleeping. History of R shoulder rotator cuff surgery around 2010. 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 Prior Functional Status Baseline Function- ADL's Independent Baseline Function- Mobility Independent Current Functional Impairments (Reported) Functional Limitations- ADL's Using the arm to carry, reach behind back, lift Personal Factors Other Personal Factors That May Effect DM II, hypothyroid, previous R Therapy/Recovery rotator cuff surgery x2 PT-OP-C Subjective Start: 12/23/19 07:56 Freq: Status: Active Protocol: Document 04/02/20 10:34 MA (Rec: 04/02/20 11:14 MA [id number]) OP-PT Subjective Patient Comments Patient Comments Her shoulder has started hurting again when she sleeps on the L side PT-OP-K Range of Motion Start: 12/23/19 07:56 Freq: Status: Active Protocol: Document 02/17/20 13:46 AMB (Rec: 02/17/20 13:56 AMB [id number]) Shoulder Goniometric Range of Motion Shoulder Right Active Testing Position Sitting Flexion 165 Abduction 170 External Rotation at 0 degrees Abduction 50 Internal Rotation Behind Back (text) T6 Left Active Testing Position Standing Flexion 134 Extension 52 Abduction 92 External Rotation at 0 degrees Abduction 40 Internal Rotation Behind Back (text) buttocks PT-OP-L Special Tests Start: 12/23/19 07:56 Freq: Status: Active Protocol: Document 12/23/19 08:15 AMB (Rec: 12/25/19 08:14 AMB [email or web address]) Special Tests Shoulder Special Tests Empty Can Test Results - Lift-Off Rotator Cuff Test Results + PT-OP-M Strength Start: 12/23/19 07:56 Freq: Status: Active Protocol: Document 12/23/19 08:15 AMB (Rec: 12/25/19 08:14 AMB [email or web address]) Shoulder Strength Shoulder Manual Muscle Testing Right Flexion 4 Good Extension 4+ Good+ Abduction (C5) 4 Good External Rotation 4 Good Internal Rotation 4+ Good+ Left Flexion 3+ Fair+ Extension 4 Good Abduction (C5) 3- Fair- External Rotation 4- Good- Internal Rotation 4- Good- PT-OP-Q Treatments Start: 12/23/19 07:56 Freq: Status: Active Protocol: Document 04/02/20 10:34 MA (Rec: 04/02/20 11:14 MA [id number]) Cardio Equipment Upper Body Ergometer (UBE) Duration (Minutes) 8 RPM 65 Seat Position 13 Height 2.5 Other 4 min fwd, 4 bkwd Therapeutic Exercises Supine Exercises IR/ER Supine Exercise Name at 90 degrees abd Side left Resistance 2# Sidelying Exercises 3 Sidelying Exercise Name sleeper stretch Reps/Minutes 2x60 sec 2 Sidelying Exercise Name shoulder ER Reps/Minutes 2x10 Comments 2# 1 Sidelying Exercise Name shoulder abd Reps/Minutes 2x10 Comments 2# to 45 degrees Sitting Exercises 2 Sitting Exercise Name velia- flexion, scaption Side bilateral Reps/Minutes 5 min Standing Exercises 3 Standing Exercise Name shoulder extension Side bilateral Equipment Used TB#2 Reps/Minutes 2x10 2 Standing Exercise Name t band rows Side bilateral Equipment Used #2 t band Reps/Minutes 2x10 Manual Therapy Treatment Soft Tissue Mobilization 1 Body Location L shoulder Comments Supraspinatus, infraspinatus, anterior deltoid, PROM all planes Joint Mobilizations 2 Joint posteriorinferior glide Direction GH Grade II PT-OP-T Assessment and Plan Start: 12/23/19 07:56 Freq: Status: Active Protocol: Document 04/02/20 10:34 MA (Rec: 04/02/20 11:14 MA [id number]) Physical Therapy Assessment Goals Three Impairment Pain Short Term Goal (STG) Diane will perform upper body dressing with shoulder pain of 5/10 or less. PROGRESS MADE: usually ok, but if she accidentally rotates the shoulder it hurts STG Duration 4 weeks Custodial Goal (LTG) Diane will cooker sulfite with shoulder pain of 3/10 or less. LTG Duration 8 weeks Two Impairment Strength Short Term Goal (STG) Diane will improve her shoulder abduction strength to 4/5 or better. 03/26: Progress made STG Duration 4 weeks Third Steel Pourer Goal (LTG) Diane will improve her shoulder strength so that she can lift a plate to an upper cabinet without shoulder compensations. LTG Duration 8 weeks One Impairment ROM Short Term Goal (STG) Diane will improve her shoulder AROM flexion to 140 degrees. STG Duration MET Third Steel Pourer Goal (LTG) Diane will improve her shoulder AROM internal rotation so that she can clasp her bra behind her back. 03/26 : Not met LTG Duration 8 weeks Assessment Summary Assessment Pt had 6/10 pain during passive L ER today and no pain into IR. She is able to complete all exercises with 2# weight without pain today. Physical Therapy Plan Frequency and Duration Frequency of Treatment 2x/Week Duration of Treatment 6 weeks Plan of Care Start Date 03/26/20 Plan of Care End Date 05/21/20 Therapeutic Interventions Therapeutic Interventions Home Exercise Program,Joint Mobilizations,Manual Therapy, Neuromuscular Re-education, Self-Care/Home Management, Therapeutic Activities, Therapeutic Exercises Modalities Cold Pack/Ice Massage,Electric Stimulation,Hot Packs, Ultrasound Next Visit Focus/Plan Next Note Type Treatment Note Next Visit Plan Continue IR/ER supine with weight and sleeper stetch with light weight; work on PROM all planes and STM to L shd. Measure active IR
--- NOTE | 2020-04-09 09:45 | PT.OTN ---
Current Diagnoses Pain in left shoulder (04/09/20) Physical Therapy Treatment Note PT-OP-A Visit Information Start: 12/23/19 07:56 Freq: Status: Active Protocol: Document 04/09/20 09:04 MA (Rec: 04/09/20 09:45 MA [id number]) Out-Patient Physical Therapy Visit Information Visit Information Visit Type Treatment Note Visit Start Time 09:00 Visit Stop Time 09:40 Total Visit Minutes 40 Visit Number 15 Number of WEB PRESS OPERATOR APPRENTICE Visits 3 PT-OP-B Current Condition Start: 12/23/19 07:56 Freq: Status: Active Protocol: Document 12/23/19 08:12 AMB (Rec: 12/23/19 08:21 AMB [id number]) Current Condition History of Current Condition Onset Date 4 months ago Current Complaints L shoulder pain History of Current Condition Diane reports insidious onset shoulder pain, unable to lift L arm behind back or above shoulder. Difficulty and pain sleeping. History of R shoulder rotator cuff surgery around 2010. 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 Prior Functional Status Baseline Function- ADL's Independent Baseline Function- Mobility Independent Current Functional Impairments (Reported) Functional Limitations- ADL's Using the arm to carry, reach behind back, lift Personal Factors Other Personal Factors That May Effect DM II, hypothyroid, previous R Therapy/Recovery rotator cuff surgery x2 PT-OP-C Subjective Start: 12/23/19 07:56 Freq: Status: Active Protocol: Document 04/09/20 09:04 MA (Rec: 04/09/20 09:45 MA [id number]) OP-PT Subjective Patient Comments Patient Comments Pt states she has good days and bad days with her shd PT-OP-K Range of Motion Start: 12/23/19 07:56 Freq: Status: Active Protocol: Document 02/17/20 13:46 AMB (Rec: 02/17/20 13:56 AMB [id number]) Shoulder Goniometric Range of Motion Shoulder Right Active Testing Position Sitting Flexion 165 Abduction 170 External Rotation at 0 degrees Abduction 50 Internal Rotation Behind Back (text) T6 Left Active Testing Position Standing Flexion 134 Extension 52 Abduction 92 External Rotation at 0 degrees Abduction 40 Internal Rotation Behind Back (text) buttocks PT-OP-L Special Tests Start: 12/23/19 07:56 Freq: Status: Active Protocol: Document 12/23/19 08:15 AMB (Rec: 12/25/19 08:14 AMB [email or web address]) Special Tests Shoulder Special Tests Empty Can Test Results - Lift-Off Rotator Cuff Test Results + PT-OP-M Strength Start: 12/23/19 07:56 Freq: Status: Active Protocol: Document 12/23/19 08:15 AMB (Rec: 12/25/19 08:14 AMB [email or web address]) Shoulder Strength Shoulder Manual Muscle Testing Right Flexion 4 Good Extension 4+ Good+ Abduction (C5) 4 Good External Rotation 4 Good Internal Rotation 4+ Good+ Left Flexion 3+ Fair+ Extension 4 Good Abduction (C5) 3- Fair- External Rotation 4- Good- Internal Rotation 4- Good- PT-OP-Q Treatments Start: 12/23/19 07:56 Freq: Status: Active Protocol: Document 04/09/20 09:04 MA (Rec: 04/09/20 09:45 MA [id number]) Cardio Equipment Upper Body Ergometer (UBE) Duration (Minutes) 8 RPM 65 Seat Position 13 Height 2.5 Other 4 min fwd, 4 bkwd Therapeutic Exercises Sidelying Exercises 3 Sidelying Exercise Name sleeper stretch Reps/Minutes 2x60 sec 2 Sidelying Exercise Name shoulder ER Reps/Minutes 2x10 Comments 2# 1 Sidelying Exercise Name shoulder abd Reps/Minutes 2x10 Comments 2# to 45 degrees Sitting Exercises PrOM flex Sitting Exercise Name PROM shd flexion Reps/Minutes 10x Standing Exercises Wall slides Standing Exercise Name Flex/ ABD Side left 3 Standing Exercise Name shoulder extension Side bilateral Equipment Used TB#2 Reps/Minutes 2x10 2 Standing Exercise Name t band rows Side bilateral Equipment Used #2 t band Reps/Minutes 2x10 Self-Care/Home Management Treatment Education Patient Education Posture Other Education Pt is having soreness between shd blades; explained how 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 LTG Duration 8 weeks Two Impairment Strength Short Term Goal (STG) Diane will improve her shoulder abduction strength to 4/5 or better. 03/26: Progress made STG Duration 4 weeks Working Second Hand Goal (LTG) Diane will improve her shoulder strength so that she can lift a plate to an upper cabinet without shoulder compensations. LTG Duration 8 weeks One Impairment ROM Short Term Goal (STG) Diane will improve her shoulder AROM flexion to 140 degrees. STG Duration MET [facility] Goal (LTG) Diane will improve her shoulder AROM internal rotation so that she can clasp her bra behind her back. 03/26 : Not met LTG Duration 8 weeks Assessment Summary Assessment Measured pts AROM IR 38 degrees L, 65 R. Continued with scap stabilizing exercises and AROM into IR/ER for increasing ROM. Physical Therapy Plan Frequency and Duration Frequency of Treatment 2x/Week Duration of Treatment 6 weeks Plan of Care Start Date 03/26/20 Plan of Care End Date 05/21/20 Therapeutic Interventions Therapeutic Interventions Home Exercise Program,Joint Mobilizations,Manual Therapy, Neuromuscular Re-education, Self-Care/Home Management, Therapeutic Activities, Therapeutic Exercises Modalities Cold Pack/Ice Massage,Electric Stimulation,Hot Packs, Ultrasound Next Visit Focus/Plan Next Note Type Treatment Note Next Visit Plan Jt mobs to L shd for increasing IR; continue per POC
--- NOTE | 2020-04-12 15:00 | PT.OTN ---
Current Diagnoses Pain in left shoulder (04/12/20) Physical Therapy Treatment Note PT-OP-A Visit Information Start: 12/23/19 07:56 Freq: Status: Active Protocol: Document 04/12/20 12:45 AMB (Rec: 04/12/20 13:01 AMB [id number]) Out-Patient Physical Therapy Visit Information Visit Information Visit Type Treatment Note Visit Start Time 12:45 Visit Stop Time 13:30 Total Visit Minutes 45 Visit Number 16 Number of HVAC TECHNICIAN RESIDENTIAL Visits 0 PT-OP-B Current Condition Start: 12/23/19 07:56 Freq: Status: Active Protocol: Document 12/23/19 08:12 AMB (Rec: 12/23/19 08:21 AMB [id number]) Current Condition History of Current Condition Onset Date 4 months ago Current Complaints L shoulder pain History of Current Condition Diane reports insidious onset shoulder pain, unable to lift L arm behind back or above shoulder. Difficulty and pain sleeping. History of R shoulder rotator cuff surgery around 2010. 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 Prior Functional Status Baseline Function- ADL's Independent Baseline Function- Mobility Independent Current Functional Impairments (Reported) Functional Limitations- ADL's Using the arm to carry, reach behind back, lift Personal Factors Other Personal Factors That May Effect DM II, hypothyroid, previous R Therapy/Recovery rotator cuff surgery x2 PT-OP-C Subjective Start: 12/23/19 07:56 Freq: Status: Active Protocol: Document 04/12/20 12:45 AMB (Rec: 04/12/20 13:01 AMB [id number]) OP-PT Subjective Patient Comments Patient Comments Pt reports continued popping and difficulty with internal rotation. PT-OP-K Range of Motion Start: 12/23/19 07:56 Freq: Status: Active Protocol: Document 02/17/20 13:46 AMB (Rec: 02/17/20 13:56 AMB [id number]) Shoulder Goniometric Range of Motion Shoulder Right Active Testing Position Sitting Flexion 165 Abduction 170 External Rotation at 0 degrees Abduction 50 Internal Rotation Behind Back (text) T6 Left Active Testing Position Standing Flexion 134 Extension 52 Abduction 92 External Rotation at 0 degrees Abduction 40 Internal Rotation Behind Back (text) buttocks PT-OP-L Special Tests Start: 12/23/19 07:56 Freq: Status: Active Protocol: Document 12/23/19 08:15 AMB (Rec: 12/25/19 08:14 AMB [email or web address]) Special Tests Shoulder Special Tests Empty Can Test Results - Lift-Off Rotator Cuff Test Results + PT-OP-M Strength Start: 12/23/19 07:56 Freq: Status: Active Protocol: Document 12/23/19 08:15 AMB (Rec: 12/25/19 08:14 AMB [email or web address]) Shoulder Strength Shoulder Manual Muscle Testing Right Flexion 4 Good Extension 4+ Good+ Abduction (C5) 4 Good External Rotation 4 Good Internal Rotation 4+ Good+ Left Flexion 3+ Fair+ Extension 4 Good Abduction (C5) 3- Fair- External Rotation 4- Good- Internal Rotation 4- Good- PT-OP-Q Treatments Start: 12/23/19 07:56 Freq: Status: Active Protocol: Document 04/12/20 12:45 AMB (Rec: 04/12/20 13:01 AMB [id number]) Cardio Equipment Upper Body Ergometer (UBE) Duration (Minutes) 8 RPM 65 Seat Position 13 Height 2.5 Other 4 min fwd, 4 bkwd Therapeutic Exercises Standing Exercises 3 Standing Exercise Name shoulder extension Side bilateral Equipment Used TB#3 Reps/Minutes 2x10 2 Standing Exercise Name t band rows Side bilateral Equipment Used #3 t band Reps/Minutes 2x10 Manual Therapy Treatment Joint Mobilizations 2 Joint posteriorinferior glide Direction GH Grade II PT-OP-T Assessment and Plan Start: 12/23/19 07:56 Freq: Status: Active Protocol: Document 04/12/20 12:45 AMB (Rec: 04/12/20 13:01 AMB [id number]) Physical Therapy Assessment Goals Three Impairment Pain Short Term Goal (STG) Diane will perform upper body dressing with shoulder pain of 5/10 or less. 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 LTG Duration 8 weeks Two Impairment Strength Short Term Goal (STG) Diane will improve her shoulder abduction strength to 4/5 or better. 03/26: Progress made STG Duration 4 weeks Spray Crew Goal (LTG) Diane will improve her shoulder strength so that she can lift a plate to an upper cabinet without shoulder compensations. LTG Duration 8 weeks One Impairment ROM Short Term Goal (STG) Diane will improve her shoulder AROM flexion to 140 degrees. STG Duration MET Jail Goal (LTG) Diane will improve her shoulder AROM internal rotation so that she can clasp her bra behind her back. 03/26 : Not met LTG Duration 8 weeks Assessment Summary Assessment Pt continues to want to improve IR, which comfortably she can get to her buttocks. Continues to note improvement with flexion and scaption, but straight plane abd, ER, IR continue to be limited by pain when stretching. Physical Therapy Plan Next Visit Focus/Plan Next Note Type Treatment Note Next Visit Plan Jt mobs to L shd for increasing IR; continue per POC
--- NOTE | 2020-04-20 11:55 | PT.OTN ---
Current Diagnoses Pain in left shoulder (04/20/20) Physical Therapy Treatment Note PT-OP-A Visit Information Start: 12/23/19 07:56 Freq: Status: Active Protocol: Document 04/20/20 11:15 AMB (Rec: 04/20/20 11:55 AMB [id number]) Out-Patient Physical Therapy Visit Information Visit Information Visit Type Treatment Note Visit Start Time 11:15 Visit Stop Time 12:00 Total Visit Minutes 45 Visit Number 17 Number of NETWORK OPERATIONS SPECIALIST Visits 0 PT-OP-B Current Condition Start: 12/23/19 07:56 Freq: Status: Active Protocol: Document 12/23/19 08:12 AMB (Rec: 12/23/19 08:21 AMB [id number]) Current Condition History of Current Condition Onset Date 4 months ago Current Complaints L shoulder pain History of Current Condition Diane reports insidious onset shoulder pain, unable to lift L arm behind back or above shoulder. Difficulty and pain sleeping. History of R shoulder rotator cuff surgery around 2010. 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 Prior Functional Status Baseline Function- ADL's Independent Baseline Function- Mobility Independent Current Functional Impairments (Reported) Functional Limitations- ADL's Using the arm to carry, reach behind back, lift Personal Factors Other Personal Factors That May Effect DM II, hypothyroid, previous R Therapy/Recovery rotator cuff surgery x2 PT-OP-C Subjective Start: 12/23/19 07:56 Freq: Status: Active Protocol: Document 04/20/20 11:15 AMB (Rec: 04/20/20 11:55 AMB [id number]) OP-PT Subjective Patient Comments Patient Comments Pain after helping a friend move over the weekend. PT-OP-K Range of Motion Start: 12/23/19 07:56 Freq: Status: Active Protocol: Document 02/17/20 13:46 AMB (Rec: 02/17/20 13:56 AMB [id number]) Shoulder Goniometric Range of Motion Shoulder Right Active Testing Position Sitting Flexion 165 Abduction 170 External Rotation at 0 degrees Abduction 50 Internal Rotation Behind Back (text) T6 Left Active Testing Position Standing Flexion 134 Extension 52 Abduction 92 External Rotation at 0 degrees Abduction 40 Internal Rotation Behind Back (text) buttocks PT-OP-L Special Tests Start: 12/23/19 07:56 Freq: Status: Active Protocol: Document 12/23/19 08:15 AMB (Rec: 12/25/19 08:14 AMB [email or web address]) Special Tests Shoulder Special Tests Empty Can Test Results - Lift-Off Rotator Cuff Test Results + PT-OP-M Strength Start: 12/23/19 07:56 Freq: Status: Active Protocol: Document 12/23/19 08:15 AMB (Rec: 12/25/19 08:14 AMB [email or web address]) Shoulder Strength Shoulder Manual Muscle Testing Right Flexion 4 Good Extension 4+ Good+ Abduction (C5) 4 Good External Rotation 4 Good Internal Rotation 4+ Good+ Left Flexion 3+ Fair+ Extension 4 Good Abduction (C5) 3- Fair- External Rotation 4- Good- Internal Rotation 4- Good- PT-OP-Q Treatments Start: 12/23/19 07:56 Freq: Status: Active Protocol: Document 04/20/20 11:15 AMB (Rec: 04/20/20 11:55 AMB [id number]) Therapeutic Exercises Sidelying Exercises 3 Sidelying Exercise Name sleeper stretch Reps/Minutes 2x60 sec 2 Sidelying Exercise Name shoulder ER Reps/Minutes 2x10 Comments 2# 1 Sidelying Exercise Name shoulder abd Reps/Minutes 2x10 Comments 2# to 45 degrees Sitting Exercises 2 Sitting Exercise Name velia- flexion, scaption, IR Side bilateral Reps/Minutes 5 min each 1 Sitting Exercise Name upper trap stretch Reps/Minutes 30x2 Standing Exercises 3 Standing Exercise Name shoulder extension Side bilateral Equipment Used TB#3 Reps/Minutes 2x10 2 Standing Exercise Name t band rows Side bilateral Equipment Used #3 t band Reps/Minutes 2x10 Manual Therapy Treatment Joint Mobilizations 2 Joint posteriorinferior glide Direction GH Grade II Manual Techniques 1 Type PROM Comments flexion and IR irritating today PT-OP-T Assessment and Plan Start: 12/23/19 07:56 Freq: Status: Active Protocol: Document 04/20/20 11:15 AMB (Rec: 04/20/20 11:55 AMB [id number]) Physical Therapy Assessment Assessment Summary Assessment Pt was more sore today, but IR ROM was improved, especiallly with velia. Continue to progress ROM and stabilization exercises. Physical Therapy Plan Next Visit Focus/Plan Next Note Type Treatment Note Next Visit Plan Jt mobs to L shd for increasing IR; continue per POC
--- NOTE | 2020-04-23 10:30 | PT.OTN ---
Current Diagnoses Pain in left shoulder (04/23/20) Physical Therapy Treatment Note PT-OP-A Visit Information Start: 12/23/19 07:56 Freq: Status: Active Protocol: Document 04/23/20 09:53 MA (Rec: 04/23/20 10:29 MA [id number]) Out-Patient Physical Therapy Visit Information Visit Information Visit Type Treatment Note Visit Start Time 09:47 Visit Stop Time 10:26 Total Visit Minutes 39 Visit Number 18 Number of ARMHOLE FELLER HANDSTITCHING MACHINE Visits 1 PT-OP-B Current Condition Start: 12/23/19 07:56 Freq: Status: Active Protocol: Document 12/23/19 08:12 AMB (Rec: 12/23/19 08:21 AMB [id number]) Current Condition History of Current Condition Onset Date 4 months ago Current Complaints L shoulder pain History of Current Condition Diane reports insidious onset shoulder pain, unable to lift L arm behind back or above shoulder. Difficulty and pain sleeping. History of R shoulder rotator cuff surgery around 2010. 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 Prior Functional Status Baseline Function- ADL's Independent Baseline Function- Mobility Independent Current Functional Impairments (Reported) Functional Limitations- ADL's Using the arm to carry, reach behind back, lift Personal Factors Other Personal Factors That May Effect DM II, hypothyroid, previous R Therapy/Recovery rotator cuff surgery x2 PT-OP-C Subjective Start: 12/23/19 07:56 Freq: Status: Active Protocol: Document 04/23/20 09:53 MA (Rec: 04/23/20 10:29 MA [id number]) OP-PT Subjective Patient Comments Patient Comments Pt has been doing exercises 1- 2x a day PT-OP-K Range of Motion Start: 12/23/19 07:56 Freq: Status: Active Protocol: Document 02/17/20 13:46 AMB (Rec: 02/17/20 13:56 AMB [id number]) Shoulder Goniometric Range of Motion Shoulder Right Active Testing Position Sitting Flexion 165 Abduction 170 External Rotation at 0 degrees Abduction 50 Internal Rotation Behind Back (text) T6 Left Active Testing Position Standing Flexion 134 Extension 52 Abduction 92 External Rotation at 0 degrees Abduction 40 Internal Rotation Behind Back (text) buttocks PT-OP-L Special Tests Start: 12/23/19 07:56 Freq: Status: Active Protocol: Document 12/23/19 08:15 AMB (Rec: 12/25/19 08:14 AMB [email or web address]) Special Tests Shoulder Special Tests Empty Can Test Results - Lift-Off Rotator Cuff Test Results + PT-OP-M Strength Start: 12/23/19 07:56 Freq: Status: Active Protocol: Document 12/23/19 08:15 AMB (Rec: 12/25/19 08:14 AMB [email or web address]) Shoulder Strength Shoulder Manual Muscle Testing Right Flexion 4 Good Extension 4+ Good+ Abduction (C5) 4 Good External Rotation 4 Good Internal Rotation 4+ Good+ Left Flexion 3+ Fair+ Extension 4 Good Abduction (C5) 3- Fair- External Rotation 4- Good- Internal Rotation 4- Good- PT-OP-Q Treatments Start: 12/23/19 07:56 Freq: Status: Active Protocol: Document 04/23/20 09:53 MA (Rec: 04/23/20 10:29 MA [id number]) Cardio Equipment Upper Body Ergometer (UBE) Duration (Minutes) 6 RPM 65 Seat Position 13 Height 2.5 Other 3 min fwd, 3 bkwd Therapeutic Exercises Sidelying Exercises 3 Sidelying Exercise Name sleeper stretch Reps/Minutes 2x60 sec 2 Sidelying Exercise Name shoulder ER Reps/Minutes 2x10 Comments 2# 1 Sidelying Exercise Name shoulder abd Reps/Minutes 2x15 Comments 2# to 45 degrees Sitting Exercises 2 Sitting Exercise Name velia- flexion, scaption, IR Side bilateral Reps/Minutes 5 min each Standing Exercises IR/ER Side left Equipment Used TB#3 Reps/Minutes 2x10 3 Standing Exercise Name shoulder extension Side bilateral Equipment Used TB#3 Reps/Minutes 2x10 2 Standing Exercise Name t band rows Side bilateral Equipment Used #3 t band Reps/Minutes 2x10 Manual Therapy Treatment Joint Mobilizations 2 Joint posteriorinferior glide Direction GH Grade II PT-OP-T Assessment and Plan Start: 12/23/19 07:56 Freq: Status: Active Protocol: Document 04/23/20 09:53 MA (Rec: 04/23/20 10:29 MA [id number]) Physical Therapy Assessment Goals Three Impairment Pain Short Term Goal (STG) Diane will perform upper body dressing with shoulder pain of 5/10 or less. 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 LTG Duration 8 weeks Two Impairment Strength Short Term Goal (STG) Diane will improve her shoulder abduction strength to 4/5 or better. 03/26: Progress made STG Duration 4 weeks Multiple Games Dealer Goal (LTG) Diane will improve her shoulder strength so that she can lift a plate to an upper cabinet without shoulder compensations. LTG Duration 8 weeks One Impairment ROM Short Term Goal (STG) Diane will improve her shoulder AROM flexion to 140 degrees. STG Duration MET Multiple Games Dealer Goal (LTG) Diane will improve her shoulder AROM internal rotation so that she can clasp her bra behind her back. 03/26 : Not met LTG Duration 8 weeks Assessment Summary Assessment Pt had 6/10 pain with passive ER today and no pain during all other ther ex. She has increased ROM from previous session into IR during sleeper stretch. Pt is happy she has started getting better ROM but states she sees the dr next week and is still looking at having surgery. Physical Therapy Plan Frequency and Duration Frequency of Treatment 2x/Week Duration of Treatment 6 weeks Plan of Care Start Date 03/26/20 Plan of Care End Date 05/21/20 Therapeutic Interventions Therapeutic Interventions Home Exercise Program,Joint Mobilizations,Manual Therapy, Neuromuscular Re-education, Self-Care/Home Management, Therapeutic Activities, Therapeutic Exercises Modalities Cold Pack/Ice Massage,Electric Stimulation,Hot Packs, Ultrasound Next Visit Focus/Plan Next Note Type Treatment Note Next Visit Plan Jt mobs to L shd for increasing IR; continue per POC
--- NOTE | 2020-04-27 15:54 | PT.OTN ---
Current Diagnoses Pain in left shoulder (04/27/20) Physical Therapy Treatment Note PT-OP-A Visit Information Start: 12/23/19 07:56 Freq: Status: Active Protocol: Document 04/27/20 11:15 AMB (Rec: 04/27/20 11:51 AMB [id number]) Out-Patient Physical Therapy Visit Information Visit Information Visit Type Treatment Note Visit Start Time 11:15 Visit Stop Time 12:00 Total Visit Minutes 45 Visit Number 19 Number of SOURCING ASSOCIATE Visits 0 PT-OP-B Current Condition Start: 12/23/19 07:56 Freq: Status: Active Protocol: Document 12/23/19 08:12 AMB (Rec: 12/23/19 08:21 AMB [id number]) Current Condition History of Current Condition Onset Date 4 months ago Current Complaints L shoulder pain History of Current Condition Diane reports insidious onset shoulder pain, unable to lift L arm behind back or above shoulder. Difficulty and pain sleeping. History of R shoulder rotator cuff surgery around 2010. 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 Prior Functional Status Baseline Function- ADL's Independent Baseline Function- Mobility Independent Current Functional Impairments (Reported) Functional Limitations- ADL's Using the arm to carry, reach behind back, lift Personal Factors Other Personal Factors That May Effect DM II, hypothyroid, previous R Therapy/Recovery rotator cuff surgery x2 PT-OP-C Subjective Start: 12/23/19 07:56 Freq: Status: Active Protocol: Document 04/27/20 11:15 AMB (Rec: 04/27/20 11:51 AMB [id number]) OP-PT Subjective Patient Comments Patient Comments Pt is continuing to notice discomfort with sleeping PT-OP-K Range of Motion Start: 12/23/19 07:56 Freq: Status: Active Protocol: Document 02/17/20 13:46 AMB (Rec: 02/17/20 13:56 AMB [id number]) Shoulder Goniometric Range of Motion Shoulder Right Active Testing Position Sitting Flexion 165 Abduction 170 External Rotation at 0 degrees Abduction 50 Internal Rotation Behind Back (text) T6 Left Active Testing Position Standing Flexion 134 Extension 52 Abduction 92 External Rotation at 0 degrees Abduction 40 Internal Rotation Behind Back (text) buttocks PT-OP-L Special Tests Start: 12/23/19 07:56 Freq: Status: Active Protocol: Document 12/23/19 08:15 AMB (Rec: 12/25/19 08:14 AMB [email or web address]) Special Tests Shoulder Special Tests Empty Can Test Results - Lift-Off Rotator Cuff Test Results + PT-OP-M Strength Start: 12/23/19 07:56 Freq: Status: Active Protocol: Document 12/23/19 08:15 AMB (Rec: 12/25/19 08:14 AMB [email or web address]) Shoulder Strength Shoulder Manual Muscle Testing Right Flexion 4 Good Extension 4+ Good+ Abduction (C5) 4 Good External Rotation 4 Good Internal Rotation 4+ Good+ Left Flexion 3+ Fair+ Extension 4 Good Abduction (C5) 3- Fair- External Rotation 4- Good- Internal Rotation 4- Good- PT-OP-Q Treatments Start: 12/23/19 07:56 Freq: Status: Active Protocol: Document 04/27/20 11:15 AMB (Rec: 04/27/20 11:51 AMB [id number]) Cardio Equipment Upper Body Ergometer (UBE) Duration (Minutes) 6 RPM 65 Seat Position 13 Height 2.5 Other 3 min fwd, 3 bkwd Therapeutic Exercises Supine Exercises IR/ER Supine Exercise Name at 90 degrees abd Side left Resistance 2# Sidelying Exercises 3 Sidelying Exercise Name sleeper stretch Reps/Minutes 2x60 sec 2 Sidelying Exercise Name shoulder ER Reps/Minutes 2x10 Comments 2# 1 Sidelying Exercise Name shoulder abd Reps/Minutes 2x15 Comments 2# to 45 degrees Standing Exercises IR/ER Side left Equipment Used TB#3 Reps/Minutes 2x10 2 Standing Exercise Name t band rows Side bilateral Equipment Used #3 t band Reps/Minutes 2x10 Manual Therapy Treatment Joint Mobilizations 2 Joint posteriorinferior glide Direction GH Grade IV Manual Techniques 1 Type PROM Comments no significant pain today, limited with ER PT-OP-T Assessment and Plan Start: 12/23/19 07:56 Freq: Status: Active Protocol: Document 04/27/20 11:15 AMB (Rec: 04/27/20 11:51 AMB [id number]) Physical Therapy Assessment Assessment Summary Assessment Diane had discomfort with ER and IR today, but not significant, increased IR range today. PT is considering surgery for her parathyroid, not shoulder at this time. Physical Therapy Plan Next Visit Focus/Plan Next Note Type Treatment Note Next Visit Plan Jt mobs to L shd for increasing IR; continue per POC
--- NOTE | 2020-05-04 11:58 | PT.OTN ---
Current Diagnoses Pain in left shoulder (05/04/20) Physical Therapy Treatment Note PT-OP-A Visit Information Start: 12/23/19 07:56 Freq: Status: Active Protocol: Document 05/04/20 10:15 AMB (Rec: 05/04/20 10:58 AMB [id number]) Out-Patient Physical Therapy Visit Information Visit Information Visit Type Treatment Note Visit Start Time 10:15 Visit Stop Time 11:00 Total Visit Minutes 45 Visit Number 20 Number of CONSTRUCTION RIGGER Visits 0 PT-OP-B Current Condition Start: 12/23/19 07:56 Freq: Status: Active Protocol: Document 12/23/19 08:12 AMB (Rec: 12/23/19 08:21 AMB [id number]) Current Condition History of Current Condition Onset Date 4 months ago Current Complaints L shoulder pain History of Current Condition Diane reports insidious onset shoulder pain, unable to lift L arm behind back or above shoulder. Difficulty and pain sleeping. History of R shoulder rotator cuff surgery around 2010. 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 Prior Functional Status Baseline Function- ADL's Independent Baseline Function- Mobility Independent Current Functional Impairments (Reported) Functional Limitations- ADL's Using the arm to carry, reach behind back, lift Personal Factors Other Personal Factors That May Effect DM II, hypothyroid, previous R Therapy/Recovery rotator cuff surgery x2 PT-OP-C Subjective Start: 12/23/19 07:56 Freq: Status: Active Protocol: Document 05/04/20 10:15 AMB (Rec: 05/04/20 10:58 AMB [id number]) OP-PT Subjective Patient Comments Patient Comments Pt is scheduled for parathyroid surgery, so will need to cancel a few appointments because it is going to be next week. PT-OP-K Range of Motion Start: 12/23/19 07:56 Freq: Status: Active Protocol: Document 02/17/20 13:46 AMB (Rec: 02/17/20 13:56 AMB [id number]) Shoulder Goniometric Range of Motion Shoulder Right Active Testing Position Sitting Flexion 165 Abduction 170 External Rotation at 0 degrees Abduction 50 Internal Rotation Behind Back (text) T6 Left Active Testing Position Standing Flexion 134 Extension 52 Abduction 92 External Rotation at 0 degrees Abduction 40 Internal Rotation Behind Back (text) buttocks PT-OP-L Special Tests Start: 12/23/19 07:56 Freq: Status: Active Protocol: Document 12/23/19 08:15 AMB (Rec: 12/25/19 08:14 AMB [email or web address]) Special Tests Shoulder Special Tests Empty Can Test Results - Lift-Off Rotator Cuff Test Results + PT-OP-M Strength Start: 12/23/19 07:56 Freq: Status: Active Protocol: Document 12/23/19 08:15 AMB (Rec: 12/25/19 08:14 AMB [email or web address]) Shoulder Strength Shoulder Manual Muscle Testing Right Flexion 4 Good Extension 4+ Good+ Abduction (C5) 4 Good External Rotation 4 Good Internal Rotation 4+ Good+ Left Flexion 3+ Fair+ Extension 4 Good Abduction (C5) 3- Fair- External Rotation 4- Good- Internal Rotation 4- Good- PT-OP-Q Treatments Start: 12/23/19 07:56 Freq: Status: Active Protocol: Document 05/04/20 10:15 AMB (Rec: 05/04/20 11:58 AMB [email or web address]) Cardio Equipment Upper Body Ergometer (UBE) Duration (Minutes) 6 RPM 65 Seat Position 13 Height 2.5 Other 3 min fwd, 3 bkwd Therapeutic Exercises Supine Exercises IR/ER Supine Exercise Name at 90 degrees abd Side left Resistance 2# Sidelying Exercises 3 Sidelying Exercise Name sleeper stretch Reps/Minutes 2x60 sec 2 Sidelying Exercise Name shoulder ER Reps/Minutes 2x10 Comments 2# 1 Sidelying Exercise Name shoulder abd Reps/Minutes 2x15 Comments 2# to 45 degrees Standing Exercises IR/ER Side left Equipment Used TB#3 Reps/Minutes 2x10 Manual Therapy Treatment Soft Tissue Mobilization 1 Body Location L shoulder Comments Supraspinatus, infraspinatus, anterior deltoid, PROM all planes Joint Mobilizations 2 Joint posteriorinferior glide Direction GH Grade IV PT-OP-T Assessment and Plan Start: 12/23/19 07:56 Freq: Status: Active Protocol: Document 05/04/20 10:15 AMB (Rec: 05/04/20 11:58 AMB [email or web address]) Physical Therapy Assessment Assessment Summary Assessment Diane did not have painful ER today. She continues to be focused on IR, her IR is improved, but not equal to the non-painful shoulder. Physical Therapy Plan Next Visit Focus/Plan Next Note Type Treatment Note Next Visit Plan Possible progress note, depending on when pt returens from parathyroid surgery
--- NOTE | 2020-05-18 15:37 | PT.OTN ---
Current Diagnoses Pain in left shoulder (05/18/20) Physical Therapy Treatment Note PT-OP-A Visit Information Start: 12/23/19 07:56 Freq: Status: Active Protocol: Document 05/18/20 10:15 AMB (Rec: 05/18/20 11:01 AMB [id number]) Out-Patient Physical Therapy Visit Information Visit Information Visit Type Progress Note Visit Start Time 10:15 Visit Stop Time 11:00 Total Visit Minutes 45 Visit Number 21 PT-OP-B Current Condition Start: 12/23/19 07:56 Freq: Status: Active Protocol: Document 12/23/19 08:12 AMB (Rec: 12/23/19 08:21 AMB [id number]) Current Condition History of Current Condition Onset Date 4 months ago Current Complaints L shoulder pain History of Current Condition Diane reports insidious onset shoulder pain, unable to lift L arm behind back or above shoulder. Difficulty and pain sleeping. History of R shoulder rotator cuff surgery around 2010. 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 Prior Functional Status Baseline Function- ADL's Independent Baseline Function- Mobility Independent Current Functional Impairments (Reported) Functional Limitations- ADL's Using the arm to carry, reach behind back, lift Personal Factors Other Personal Factors That May Effect DM II, hypothyroid, previous R Therapy/Recovery rotator cuff surgery x2 PT-OP-C Subjective Start: 12/23/19 07:56 Freq: Status: Active Protocol: Document 05/18/20 10:15 AMB (Rec: 05/18/20 11:01 AMB [id number]) OP-PT Subjective Patient Comments Patient Comments Pt was able to fasten her bra behind her back for the first time since her shoulder started bothering her today. It did feel like a stretch, but wasn't painful like it used to be. PT-OP-K Range of Motion Start: 12/23/19 07:56 Freq: Status: Active Protocol: Document 05/18/20 10:26 AMB (Rec: 05/18/20 10:31 AMB [id number]) Shoulder Goniometric Range of Motion Shoulder Left Active Flexion 146 Abduction 140 External Rotation at 0 degrees Abduction 50 Internal Rotation Behind Back (text) T10 PT-OP-L Special Tests Start: 12/23/19 07:56 Freq: Status: Active Protocol: Document 12/23/19 08:15 AMB (Rec: 12/25/19 08:14 AMB [email or web address]) Special Tests Shoulder Special Tests Empty Can Test Results - Lift-Off Rotator Cuff Test Results + PT-OP-M Strength Start: 12/23/19 07:56 Freq: Status: Active Protocol: Document 05/18/20 10:26 AMB (Rec: 05/18/20 10:31 AMB [id number]) Shoulder Strength Shoulder Manual Muscle Testing Left Flexion 4 Good Abduction (C5) 4 Good External Rotation 4 Good Internal Rotation 4+ Good+ PT-OP-Q Treatments Start: 12/23/19 07:56 Freq: Status: Active Protocol: Document 05/18/20 10:15 AMB (Rec: 05/18/20 15:37 AMB [email or web address]) Cardio Equipment Upper Body Ergometer (UBE) Duration (Minutes) 6 RPM 65 Seat Position 13 Height 2.5 Other 3 min fwd, 3 bkwd Therapeutic Exercises Supine Exercises IR/ER Supine Exercise Name at 90 degrees abd Side left Resistance 2# Standing Exercises IR/ER Side left Equipment Used TB#3 Reps/Minutes 2x10 Wall slides Standing Exercise Name Flex/ ABD Side left Manual Therapy Treatment Soft Tissue Mobilization 1 Body Location L shoulder Comments Supraspinatus, infraspinatus, anterior deltoid, PROM all planes Joint Mobilizations 2 Joint posteriorinferior glide Direction GH Grade IV PT-OP-T Assessment and Plan Start: 12/23/19 07:56 Freq: Status: Active Protocol: Document 05/18/20 10:15 AMB (Rec: 05/18/20 11:01 AMB [id number]) Physical Therapy Assessment Goals Three Impairment Pain Short Term Goal (STG) Diane will perform upper body dressing with shoulder pain of 5/10 or less. 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 LTG Duration MET Two Impairment Strength Short Term Goal (STG) Diane will improve her shoulder abduction strength to 4/5 or better. STG Duration MET Advertising Specialist Goal (LTG) Diane will improve her shoulder strength so that she can lift a plate to an upper cabinet without shoulder compensations. LTG Duration MET One Impairment ROM Short Term Goal (STG) Diane will improve her shoulder AROM flexion to 140 degrees. STG Duration MET Advertising Specialist Goal (LTG) Diane will improve her shoulder AROM internal rotation so that she can clasp her bra behind her back. Pt has done this once, with stiffness, but not necessarily pain LTG Duration INTERMITTENTLY MET Assessment Summary Assessment Diane has improved well. She was able to don her bra normally which has been her largest goal in physical therapy. Her range of motion and strength have not returned to 100% normal yet, but she should be able to continue her progress with a few more visits of physical therapy to finalize her HEP and continue to work on manual therapy to maximize her range of motion gains. Physical Therapy Plan Frequency and Duration Frequency of Treatment 2x/Week Duration of Treatment 6 weeks Plan of Care Start Date 05/18/20 Plan of Care End Date 06/29/20 Therapeutic Interventions Therapeutic Interventions Home Exercise Program,Joint Mobilizations,Manual Therapy, Neuromuscular Re-education, Self-Care/Home Management, Therapeutic Activities, Therapeutic Exercises Modalities Cold Pack/Ice Massage,Electric Stimulation,Hot Packs, Ultrasound Next Visit Focus/Plan Next Note Type Treatment Note Next Visit Plan Work with pt for next 3-4 visits to try to maximize ROM and finalize HEP then likely d /c
--- NOTE | 2020-05-18 15:37 | PT.OPPOC ---
Physical, Occupational & Speech Therapy At [facility] Current Diagnoses Pain in left shoulder (05/18/20) Visit Care Team Role Provider Type Jean Marie Jaimes DO Referring Provider Non-Staff Specialty: Family Practice Address: [address] [place] [address], [id number] Email: Attending Provider Specialty: Address: Phone: Fax: Email: Plan Of Care PT-OP-T Assessment and Plan Start: 12/23/19 07:56 Freq: Status: Active Protocol: Document 05/18/20 10:15 AMB (Rec: 05/18/20 11:01 AMB [id number]) Physical Therapy Assessment Goals Three Impairment Pain Short Term Goal (STG) Diane will perform upper body dressing with shoulder pain of 5/10 or less. 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 LTG Duration MET Two Impairment Strength Short Term Goal (STG) Diane will improve her shoulder abduction strength to 4/5 or better. STG Duration MET Child Custody Evaluator Goal (LTG) Diane will improve her shoulder strength so that she can lift a plate to an upper cabinet without shoulder compensations. LTG Duration MET One Impairment ROM Short Term Goal (STG) Diane will improve her shoulder AROM flexion to 140 degrees. STG Duration MET Mcfp Goal (LTG) Diane will improve her shoulder AROM internal rotation so that she can clasp her bra behind her back. Pt has done this once, with stiffness, but not necessarily pain LTG Duration INTERMITTENTLY MET Assessment Summary Assessment Diane has improved well. She was able to don her bra normally which has been her largest goal in physical therapy. Her range of motion and strength have not returned to 100% normal yet, but she should be able to continue her progress with a few more visits of physical therapy to finalize her HEP and continue to work on manual therapy to maximize her range of motion gains. Physical Therapy Plan Frequency and Duration Frequency of Treatment 2x/Week Duration of Treatment 6 weeks Plan of Care Start Date 05/18/20 Plan of Care End Date 06/29/20 Therapeutic Interventions Therapeutic Interventions Home Exercise Program,Joint Mobilizations,Manual Therapy, Neuromuscular Re-education, Self-Care/Home Management, Therapeutic Activities, Therapeutic Exercises Modalities Cold Pack/Ice Massage,Electric Stimulation,Hot Packs, Ultrasound Next Visit Focus/Plan Next Note Type Treatment Note Next Visit Plan Work with pt for next 3-4 visits to try to maximize ROM and finalize HEP then likely d /c Plan of Care Dates Plan of Care Start Date 05/18/20 Plan of Care End Date 06/29/20 Electronically Signed by: Liza Rodriguez, PT 05/18/20 [id number] Please Sign and Return: I have reviewed this Plan of Care and certify that the skilled therapy services above are required to meet the patient?s needs. Physician Signature Date Printed Name and Credentials Clinical Instructor Signature Printed Name and Credentials
--- NOTE | 2020-05-21 10:05 | PT.OTN ---
Current Diagnoses Pain in left shoulder (05/21/20) Physical Therapy Treatment Note PT-OP-A Visit Information Start: 12/23/19 07:56 Freq: Status: Active Protocol: Document 05/21/20 09:00 AMB (Rec: 05/21/20 10:05 AMB [id number]) Out-Patient Physical Therapy Visit Information Visit Information Visit Type Treatment Note Visit Start Time 09:00 Visit Stop Time 09:45 Total Visit Minutes 45 Visit Number 22 PT-OP-B Current Condition Start: 12/23/19 07:56 Freq: Status: Active Protocol: Document 12/23/19 08:12 AMB (Rec: 12/23/19 08:21 AMB [id number]) Current Condition History of Current Condition Onset Date 4 months ago Current Complaints L shoulder pain History of Current Condition Diane reports insidious onset shoulder pain, unable to lift L arm behind back or above shoulder. Difficulty and pain sleeping. History of R shoulder rotator cuff surgery around 2010. 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 Prior Functional Status Baseline Function- ADL's Independent Baseline Function- Mobility Independent Current Functional Impairments (Reported) Functional Limitations- ADL's Using the arm to carry, reach behind back, lift Personal Factors Other Personal Factors That May Effect DM II, hypothyroid, previous R Therapy/Recovery rotator cuff surgery x2 PT-OP-C Subjective Start: 12/23/19 07:56 Freq: Status: Active Protocol: Document 05/21/20 09:00 AMB (Rec: 05/21/20 10:05 AMB [id number]) OP-PT Subjective Patient Comments Patient Comments Diane continues to have some soreness with sleeping, but not as bad as it used to be. PT-OP-K Range of Motion Start: 12/23/19 07:56 Freq: Status: Active Protocol: Document 05/18/20 10:26 AMB (Rec: 05/18/20 10:31 AMB [id number]) Shoulder Goniometric Range of Motion Shoulder Left Active Flexion 146 Abduction 140 External Rotation at 0 degrees Abduction 50 Internal Rotation Behind Back (text) T10 PT-OP-L Special Tests Start: 12/23/19 07:56 Freq: Status: Active Protocol: Document 12/23/19 08:15 AMB (Rec: 10/08/20 08:14 AMB [id number]) Special Tests Shoulder Special Tests Empty Can Test Results - Lift-Off Rotator Cuff Test Results + PT-OP-M Strength Start: 12/23/19 07:56 Freq: Status: Active Protocol: Document 05/18/20 10:26 AMB (Rec: 05/18/20 10:31 AMB [id number]) Shoulder Strength Shoulder Manual Muscle Testing Left Flexion 4 Good Abduction (C5) 4 Good External Rotation 4 Good Internal Rotation 4+ Good+ PT-OP-Q Treatments Start: 12/23/19 07:56 Freq: Status: Active Protocol: Document 05/21/20 09:00 AMB (Rec: 05/21/20 10:05 AMB [id number]) Cardio Equipment Upper Body Ergometer (UBE) Duration (Minutes) 6 RPM 65 Seat Position 13 Height 2.5 Other 3 min fwd, 3 bkwd Therapeutic Exercises Supine Exercises IR/ER Supine Exercise Name at 90 degrees abd Side left Resistance 2# Sidelying Exercises 3 Sidelying Exercise Name sleeper stretch Reps/Minutes 2x60 sec 2 Sidelying Exercise Name shoulder ER Reps/Minutes 2x10 Comments 2# 1 Sidelying Exercise Name shoulder abd Reps/Minutes 2x15 Comments 3# to 90 degrees Standing Exercises Wall slides Standing Exercise Name Flex/ ABD Side left Manual Therapy Treatment Soft Tissue Mobilization 1 Body Location L shoulder Comments Supraspinatus, infraspinatus, anterior deltoid, PROM all planes Joint Mobilizations 2 Joint posteriorinferior glide Direction GH Grade IV PT-OP-T Assessment and Plan Start: 12/23/19 07:56 Freq: Status: Active Protocol: Document 05/21/20 09:00 AMB (Rec: 05/21/20 10:05 AMB [id number]) Physical Therapy Assessment Goals Three Impairment Pain Short Term Goal (STG) Diane will perform upper body dressing with shoulder pain of 5/10 or less. 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 LTG Duration MET Two Impairment Strength Short Term Goal (STG) Diane will improve her shoulder abduction strength to 4/5 or better. STG Duration MET Television Script Writer Goal (LTG) Diane will improve her shoulder strength so that she can lift a plate to an upper cabinet without shoulder compensations. LTG Duration MET One Impairment ROM Short Term Goal (STG) Diane will improve her shoulder AROM flexion to 140 degrees. STG Duration MET Custodial Goal (LTG) Diane will improve her shoulder AROM internal rotation so that she can clasp her bra behind her back. Pt has done this once, with stiffness, but not necessarily pain LTG Duration INTERMITTENTLY MET Assessment Summary Assessment Diane is ready to be discharged at this point. She States she will continue with her exercises and follow up with her physician if her pain worsens. Overall her ROM has improved and her pain has decreased, although she is not back to 100% of her baseline. Physical Therapy Plan Discharge Physical Therapy Discharge Reasons Patient Request
== END 2020-06-11 10:01 ==
LOC: PHYS 09:00
PROVIDERS: Referring Provider Student in an Organized Health Care Education/Training Program
DX: M25.512 Pain in left shoulder (principal)
CPT/HCPCS: 97110; 97140; 97162

== ENCOUNTER 2023-11-23 18:57 | Emergency (ER) | payer OTHER, SELFPAY ==
[2023-11-23 19:06] VITALS: BP 168/74; PULSE 90; RESP 16; TEMP 36.2; O2SAT 97; BMI 34.4
[2023-11-23 19:49] LABS: Influenza A - CEPHEID Flu A NEGATIVE (NEGATIVE); Influenza B - CEPHEID Flu B NEGATIVE (NEGATIVE); Respiratory Syncytial Virus Negative (Negative)
[2023-11-23 19:50] LABS: COVID-19 CEPHEID 4-PLEX PCR Negative (Negative)
--- NOTE | 2023-11-23 22:12 | ED.URI ---
HPI - URI/Sore Throat General Chief Complaint: Upper Respiratory Symptoms Stated Complaint: sore throat getting worse Time Seen by Provider: 11/23/23 22:05 History of Present Illness HPI Narrative: Patient is a 63-year-old female history of diabetes presenting today with sore throat and cough. She and her has been happened traveling on started getting ill about 2 days ago. She says it hurts to drink water hurts to eat but she is able to do so. She has not had any sort of fever. She also has a mild cough nonproductive. No significant shortness of breath. No other symptoms. She is afebrile here. She also reports the pain is worse on the left side radiating up to her left ear Related Data Allergies Allergy/AdvReac Type Severity Reaction Status Date / Time No Known Drug Allergies Allergy Verified 09/22/18 23:29 Patient History Medical History (Updated 11/23/23 @ 23:30 by Emilia Moulton DO) Hypothyroid Hypertension Diabetes mellitus Patient denies medical problems Surgical History (Updated 12/27/19 @ 15:31 by Liza Rodriguez, PT) S/P rotator cuff repair Social History Smoking Status: Never smoker Smoking Status: Never smoker alcohol intake frequency: other Substance Use Type: does not use Exam Initial Vital Signs Initial Vital Signs: Vital Signs Temperature 97.2 F L 11/23/23 19:06 Pulse Rate 90 11/23/23 19:06 Respiratory Rate 16 11/23/23 19:06 Blood Pressure 168/74 H 11/23/23 19:06 Pulse Oximetry 97 11/23/23 19:06 Oxygen Delivery Method Room Air 11/23/23 19:06 GENERAL: Well-appearing, well-nourished and in no acute distress. HEENT: Head atraumatic,EOMI, pupils reactive, face symmetric, moist mucous membranes CARDIOVASCULAR: Regular rate and rhythm without murmurs, rubs or gallops. RESPIRATORY: Breath sounds equal bilaterally, no wheezes rales or rhonchi. EXTREMITIES: Normal range of motion, no clubbing or edema. Neurovascularly intact NEUROLOGICAL: Alert and oriented x4.Normal gait and speech. SKIN: Warm, dry, no laceration, no petechiae, no rashes or lesions. Course Orders Ordered: ED Orders 11/23/23 19:03 Covid-19 + FLU A/B + RSV - PCR Stat 11/23/23 22:28 Strep Grp A by PCR Rapid Stat 11/23/23 23:34 Throat Culture Stat Discontinued Medications Acetaminophen (Acetaminophen 325 Mg Tablet) 975 mg PO NOW ONE Stop: 11/23/23 22:23 Last Admin: 11/23/23 22:29 Dose: 975 mg Documented By: FAM Vital Signs Vital signs: Vital Signs - 8 hr 11/23/23 23:46 Temperature 98.5 F Pulse Rate 80 Respiratory Rate 18 Blood Pressure 120/79 Pulse Oximetry 97 Oxygen Delivery Method Room Air MDM - URI/Sore Throat Lab Data Labs: Lab Results 11/23/23 11/23/23 Range/Units 19:03 22:28 SARS-CoV-2 (PCR) Negative (Negative) Influenza A (RT-PCR) Flu a negative (NEGATIVE) Influenza B (RT-PCR) Flu b negative (NEGATIVE) RSV (PCR) Negative (Negative) Group A Strep (PCR) Negative (Negative) MDM Narrative Medical decision making narrative: Patient 63-year-old female history of diabetes presenting today with upper respiratory like symptoms sore throat. Viral testing is negative along with strep test. She is afebrile. I suspect viral. No antibiotics indicated at this time. She overall appears nontoxic vitals are stable, no significant respiratory distress. Discussed with her supportive care only. Throat culture is pending. Discharge Plan Departure Patient Disposition: Home Clinical Impression: Upper respiratory infection Instructions: DI for Viral Upper Respiratory Infection -- Adult Activity Restrictions/Additional Instructions: *You have been diagnosed with upper respiratory infection *What to do: At this time stay hydrated eat as you feel. Take Tylenol Motrin as needed for pain and fever *Continue to take medications as directed *Follow up with your primary care provider in 2-3 days or call [phone] *Return to ER if you should have increasing sore throat not able to swallow or any new, worsening or concerning symptoms Referrals: ProviderFernandez [Primary Care Provider] - Stand Alone Forms: Patient Portal/API
[2023-11-23] MEDS: ACETAMINOPHEN 325 MG TABLET 975 MG PO (22:29)
[2023-11-23 23:08] LABS: Strep Grp A by PCR Rapid Negative (Negative)
[2023-11-23 23:46] VITALS: BP 120/79; PULSE 80; RESP 18; TEMP 36.9; O2SAT 97
== END 2023-11-23 23:47 | disposition home or self-care (01) ==
PROVIDERS: Emergency Provider Emergency Medicine
DX: J06.9 Acute upper respiratory infection, unspecified (principal); Z11.52 Encounter for screening for COVID-19
CPT/HCPCS: 0241U; 87070; 87651; 99282; 99283

== ENCOUNTER 2023-11-26 18:11 | Emergency (ER) | payer OTHER, SELFPAY ==
[2023-11-26 18:24] VITALS: BP 147/114; PULSE 114; RESP 16; TEMP 35.5; O2SAT 96; BMI 35.9
--- NOTE | 2023-11-26 20:13 | DI.RAD.S_ITS ---
PROCEDURE: XR CHEST 1V INDICATIONS: COUGH X 3 DAYS TECHNIQUE: One view of the chest was acquired. COMPARISON: None. FINDINGS: Surgical changes and devices: None. Lungs and pleura: Lungs are clear. No pleural effusions or pneumothorax. Mediastinum: Mediastinal contours appear normal. Heart size is normal. Bones and chest wall: No suspicious bony lesions. Overlying soft tissues appear unremarkable. IMPRESSION: No acute cardiopulmonary abnormality is seen. Dictated by: Joseph Griffith M.D. on 11/26/2023 at 21:27 Approved by: Joseph Griffith M.D. on 11/26/2023 at 21:27
--- NOTE | 2023-11-26 20:14 | ED.URI ---
HPI - URI/Sore Throat General Chief Complaint: Ear Stated Complaint: ear pain, upper resp infection Time Seen by Provider: 11/26/23 19:30 Source: patient Mode of arrival: Ambulatory History of Present Illness HPI Narrative: 63-year-old female presents for bilateral ear pain, nonproductive cough, left eye redness and discharge. Seen in the emergency department 2 days prior for cough and ear pain, diagnosed with an upper respiratory infection and discharge with instructions to take cough medications, Tylenol, and ibuprofen. Patient states that she was taking these medications without significant relief. She reports ringing in throbbing in both of her ears, she states that she can not sleep because of the cough, and today her left eye began to be red, prompting her return to the emergency department. Related Data Previous Rx's Medication Instructions Recorded benzonatate 200 mg capsule 200 mg PO BID-TID PRN cough #30 11/26/23 caps ofloxacin 0.3 % eye drops 2 drp EYE-LEFT .ASDIR 7 days #5 mL 11/26/23 Allergies Allergy/AdvReac Type Severity Reaction Status Date / Time No Known Drug Allergies Allergy Verified 09/22/18 23:29 Patient History Medical History Hypothyroid Hypertension Diabetes mellitus Patient denies medical problems Surgical History S/P rotator cuff repair Social History Smoking Status: Never smoker Smoking Status: Never smoker alcohol intake frequency: other Substance Use Type: does not use Exam Initial Vital Signs Initial Vital Signs: Vital Signs Temperature 96 F L 11/26/23 18:24 Pulse Rate 114 H 11/26/23 18:24 Respiratory Rate 16 11/26/23 18:24 Blood Pressure 147/114 H 11/26/23 18:24 Pulse Oximetry 96 11/26/23 18:24 Oxygen Delivery Method Room Air 11/26/23 18:24 Const: Awake, alert, nontoxic appearing HEENT: TM normal bilaterally, bilateral ear canals erythematous with mild swelling. L eye with conjunctival injection and green crusting at corners Cardiac: regular rate, regular rhythm RESP: unlabored, clear bilaterally, no wheezing Skin: Warm, Dry, intact, no rashes Neuro: AO x3, CN II-XII grossly intact, moves all extremities Course Orders Ordered: ED Orders 11/26/23 20:13 Chest [XR chest 1V] Stat Discontinued Medications Benzonatate (Benzonatate 100 Mg Capsule) 100 mg PO NOW ONE Stop: 11/26/23 20:14 Last Admin: 11/26/23 20:24 Dose: 100 mg Documented By: DAVID Ciprofloxacin/Dexamethasone (Ciprofloxacin/Dexameth Otic Susp) 4 drops EAR-BOTH NOW ONE Stop: 11/26/23 20:14 Last Admin: 11/26/23 20:47 Dose: 4 drops Documented By: DAVID Dexamethasone (Dexamethasone 10 Mg/Ml Vial) 10 mg PO NOW ONE Stop: 11/26/23 20:14 Last Admin: 11/26/23 20:24 Dose: 10 mg Documented By: DAVID Erythromycin (Erythromycin Ophth 1 Gm Oint) 1 applic EYE-LEFT NOW ONE Stop: 11/26/23 20:14 Last Admin: 11/26/23 20:24 Dose: 1 applic Documented By: DAVID Vital Signs Vital signs: Vital Signs - 8 hr 11/26/23 21:46 Temperature 98 F Pulse Rate 86 Respiratory Rate 18 Blood Pressure 132/84 Pulse Oximetry 97 Oxygen Delivery Method Room Air MDM - URI/Sore Throat MDM Narrative Medical decision making narrative: Well appearing patient with the above complaints. L eye with injection and crusting consistent with bacterial conjunctivitis. TM normal bilaterally, pain with insertion of otoscope possibly consistent with developing otitis externa. Lungs clear to auscultation bilaterally. Patient reports concerned that she may have pneumonia because her has pneumonia. Offered chest x-ray for evaluation although I do not hear anything concerning on patient's lung exam. Patient given Ciprodex drops and sent home with bottle in the emergency department. Erythromycin ointment applied to I tonight and ofloxacin drops sent to pharmacy of choice. Chest x-ray negative for acute findings. Patient counseled that she may continue to take Robitussin, Teslatosha Louisees sent to pharmacy of choice. Other supportive measures counseled for home. Discharge Plan Departure Patient Disposition: Home Clinical Impression: Cough Acute ear pain Qualifiers: Laterality: bilateral Qualified Code(s): H92.03 - Otalgia, bilateral Acute bacterial conjunctivitis Qualifiers: Laterality: left Qualified Code(s): H10.32 - Unspecified acute conjunctivitis, left eye Instructions: How to Instill Ear Drops, DI for Cough -- Adult, DI for Conjunctivitis Activity Restrictions/Additional Instructions: Your x-rays today did not show any signs of bacterial pneumonia. You have bacterial conjunctivitis of your left eye. The ear canal of both ears appears to be red and irritated. Use the Ciprodex drops in your ear as directed: 4 drops in each ear 2 times daily for 7 days. Cough medications has been sent to the pharmacy. You may continue to take Robitussin as needed for cough suppression. Prescriptions: New benzonatate 200 mg capsule 200 mg PO BID-TID PRN (Reason: cough) Qty: 30 0RF ofloxacin 0.3 % drops 2 drp EYE-LEFT .ASDIR 7 Days Qty: 5 0RF Rx Instructions: INSTILL 1-2 DROPS EVERY 2-4 HOURS WHILE AWAKE FOR 2 DAYS, THEN 4 TIMES DAILY FOR 5 DAYS Referrals: ProviderFernandez [Primary Care Provider] - Stand Alone Forms: Patient Portal/API
[2023-11-26] MEDS: DEXAMETHASONE 10 MG/ML VIAL PO (20:24)
[2023-11-26] MEDS: BENZONATATE 100 MG CAPSULE PO (20:24)
[2023-11-26] MEDS: ERYTHROMYCIN OPHTH 1 GM OINT 1 APPLIC EYE-LEFT (20:24)
[2023-11-26] MEDS: CIPROFLOXACIN/DEXAMETH OTIC SUSP 4 DROPS EAR-BOTH (20:47)
[2023-11-26 21:46] VITALS: BP 132/84; PULSE 86; RESP 18; TEMP 36.6; O2SAT 97
== END 2023-11-26 21:40 | disposition home or self-care (01) ==
PROVIDERS: Emergency Provider Emergency Medicine
DX: H92.03 Otalgia, bilateral (principal); H10.32 Unspecified acute conjunctivitis, left eye; R05.9 Cough, unspecified
CPT/HCPCS: 71045; 99283; J1100

== ENCOUNTER 2024-10-19 18:49 | Emergency (ER) | payer OTHER, SELFPAY ==
[2024-10-19 20:34] VITALS: BP 129/65; PULSE 90; RESP 15; TEMP 37.1; O2SAT 97; BMI 34.9
--- NOTE | 2024-10-19 20:41 | DI.RAD.S_ITS ---
PROCEDURE: XR FOOT RT MIN 3V INDICATIONS: redness/swelling, pain with movement TECHNIQUE: 3 views of the foot were acquired. COMPARISON: None. FINDINGS: Bones: No fractures or dislocations. No suspicious bony lesions. Posterior calcaneal enthesophytes. Soft tissues: No tibiotalar joint effusion. Achilles tendon appears normal. IMPRESSION: No acute osseous abnormality. If pain persists with conservative management, consider repeat x-ray in 10-14 days or cross-sectional imaging. Dictated by: Dann Mcconnell M.D. on 10/19/2024 at 21:26 Approved by: Dann Mcconnell M.D. on 10/19/2024 at 21:26
[2024-10-20 01:40] VITALS: BP 136/85; PULSE 74; RESP 16; O2SAT 99
--- NOTE | 2024-10-20 02:08 | ED.EXTPRO ---
HPI - Extremity Problem General Chief complaint: Extremity Problem,Nontraumatic Stated complaint: injury right foot Time Seen by Provider: 10/20/24 01:51 Source: patient Mode of arrival: Ambulatory History of Present Illness HPI Narrative: 64-year-old female with pink coloration and redness and swelling to the dorsal right lateral foot, no bite or sting or injury recalled. No change in footwear. No fevers or chills. No infection or changes with the toenails or ingrown toenails or sores between the toes, or fungal foot infections. Not currently on antibiotics. No blunt trauma recalled. MD Complaint: extremity pain Related Data Previous Rx's ?Medication ?Instructions ?Recorded benzonatate 200 mg capsule 200 mg PO BID-TID PRN cough #30 11/26/23 caps cephalexin 500 mg capsule 500 mg PO QID 7 days #28 caps 10/20/24 Allergies Allergy/AdvReac Type Severity Reaction Status Date / Time No Known Drug Allergies Allergy Verified 10/19/24 20:34 Patient History Medical History Hypothyroid Hypertension Diabetes mellitus Patient denies medical problems Surgical History S/P rotator cuff repair Social History Smoking Status: Never smoker Smoking Status: Never smoker alcohol intake frequency: other Exam Narrative Exam Narrative: GENERAL: Well-developed patient, in mild distress. HEAD: Atraumatic. Normocephalic. EYES: Pupils equal round and reactive. Extraocular motions intact. No scleral icterus. No injection or drainage. ENT: Nose without bleeding, purulent drainage. Throat without erythema, tonsillar hypertrophy or exudate. Airway patent. NECK: Trachea midline. Non tender CARDIOVASCULAR: Regular rate and rhythm without murmurs, gallops, or rubs. RESPIRATORY: Clear to auscultation. Breath sounds equal bilaterally. No wheezes, rales, or rhonchi. GASTROINTESTINAL: Abdomen soft, non-tender, nondistended. EXTREMITIES: Erythema and edema to the dorsum right lateral foot. No bite or sting or punctures obvious, no crepitance, can move toes well. No toe or interdigital skin wounds. No ingrown toenail or paronychia changes. Can dorsiflex/plantaflex ankle. No redness to ankle or foreleg. BACK: Nontender without deformity or crepitance. No flank tenderness. NEURO: AOx3. Motor functions grossly nonfocal. SKIN: No rash or erythema of visible areas Initial Vital Signs Initial Vital Signs: Vital Signs Temperature 98.7 F 10/19/24 20:34 Pulse Rate 90 10/19/24 20:34 Respiratory Rate 15 10/19/24 20:34 Blood Pressure 129/65 10/19/24 20:34 Pulse Oximetry 97 10/19/24 20:34 Oxygen Delivery Method Room Air 10/19/24 20:34 Course Orders Ordered: Discontinued Medications Cephalexin HCl (Cephalexin 250 Mg Capsule) 500 mg PO NOW ONE Stop: 10/20/24 02:17 Last Admin: 10/20/24 02:22 Dose: Not Given Documented By: DAGO Cephalexin HCl (Cephalexin 250 Mg Capsule) 500 mg PO NOW ONE Stop: 10/20/24 02:18 Last Admin: 10/20/24 02:22 Dose: 500 mg Documented By: DAGO Vital Signs Vital signs: Vital Signs - 8 hr 10/19/24 20:34 10/20/24 01:40 Temperature 98.7 F Pulse Rate 90 74 Respiratory Rate 15 16 Blood Pressure 129/65 136/85 Pulse Oximetry 97 99 Oxygen Delivery Method Room Air Room Air MDM - Extremity (Nontraumatic) Imaging Data Extremity x-ray #1: Radiologist's Impression: [place] [address] XRay Report Signed Patient: Diane Obregon MR#: [id number] : 1960 Acct:[id number] Age/Sex: 64 / F Date of Service: 10/19/24 Loc: ED Accession Number: [id number] Procedure: XR foot RT min 3V Ordering Provider: Teto Mckeon MD PROCEDURE: XR FOOT RT MIN 3V INDICATIONS: redness/swelling, pain with movement TECHNIQUE: 3 views of the foot were acquired. COMPARISON: None. FINDINGS: Bones: No fractures or dislocations. No suspicious bony lesions. Posterior calcaneal enthesophytes. Soft tissues: No tibiotalar joint effusion. Achilles tendon appears normal. IMPRESSION: No acute osseous abnormality. If pain persists with conservative management, consider repeat x-ray in 10-14 days or cross-sectional imaging. Dictated by: Dann Mcconnell M.D. on 10/19/2024 at 21:26 Approved by: Dann Mcconnell M.D. on 10/19/2024 at 21:26 [facility] Narrative Medical decision making narrative: Right dorsal lateral foot erythema and pain and swelling, no injury recalled. Screening x-ray showed no bony injury fracture or lesions. Afebrile, sirs screen negative. Possible cellulitis. Cephalexin dose given, prescription sent to pharmacy for further dose. Recheck advised in close follow up with PCP. Return precautions discussed. Home with family. Discharge Plan Departure Patient Disposition: Home Clinical Impression: Cellulitis of foot Instructions: DI for Cellulitis -- Adult Activity Restrictions/Additional Instructions: [place] discoloration dorsal lateral right foot without injury recalled, no bites or stings. X-ray showed no bony abnormalities, no fracture. No fever on triage. We will try antibiotics for presumed cellulitis infection changes, 1st dose of cephalexin antibiotic given in the emergency department, prescription sent to your pharmacy for further course of antibiotics. Take antibiotics as directed. Recheck with your regular doctor in the next couple of days. Return to this/nearest emergency department for any change worsening symptoms or any concerns prior. Prescriptions: New cephalexin 500 mg capsule 500 mg PO QID 7 Days Qty: 28 0RF No Action benzonatate 200 mg capsule 200 mg PO BID-TID PRN (Reason: cough) Qty: 30 0RF Referrals: ProviderFernandez [Primary Care Provider, [facility]] Stand Alone Forms: Patient Portal/API
== END 2024-10-20 02:31 | disposition home or self-care (01) ==
PROVIDERS: Emergency Provider Emergency Medicine
DX: L03.115 Cellulitis of right lower limb (principal)
CPT/HCPCS: 73630; 99283